=== PATIENT | female | born 1955 | race Caucasian/White ===

== ENCOUNTER 2020-02-15 07:45 | Outpatient (REF) | payer OTHER, SELFPAY ==
--- NOTE | 2020-02-15 07:51 | MM_ITS ---
EXAMINATION: BONE DENSITOMETRY CLINICAL INDICATION: Age-related osteoporosis without current pathological fracture. COMPARISON: Previous BD dated 02/02/2018 and baseline BD dated 02/01/2016. TECHNIQUE: Using a BAUNAT DXA System (software version: 13.1) manufactured by [employer], dual-energy x-ray absorptiometry was performed of the lumbar spine and left hip. The images are of good technical quality. Summary results are attached. FINDINGS: AP SPINE L1-L4: Current: BMD 1.125 g/cm2, Z-score 0.8, T-score -0.5, normal, 8.2% increase from previous, 18.2% increase from baseline (<5% change is not significant). Prior: BMD 1.040 g/cm2. Baseline: BMD 0.952 g/cm2. LEFT FEMUR, NECK: Current: BMD 0.822 g/cm2, Z-score -0.3, T-score -1.6, osteopenia. Prior: BMD 0.733 g/cm2. Baseline: BMD 0.668 g/cm2. LEFT FEMUR, TOTAL: Current: BMD 0.902 g/cm2, Z-score 0.1, T-score -0.8, normal, 5.7% increase from previous, 11.4% increase from baseline (<5% change is not significant). Prior: BMD 0.853 g/cm2. Baseline: BMD 0.810 g/cm2. IDENTIFIED RISK FACTORS: Osteoporosis. Current smoker. Height loss. Parental hip fracture. Secondary osteoporosis (hyperthyroidism). Chronic glucocorticoids. Menopause. HISTORY OF FRACTURE: Elbow, age 23. MEDICATIONS: Prolia. IMPRESSION: 1. DIAGNOSIS: Osteopenia based on the lowest T-score value of -1.6 in the femoral neck applying World Health Organization criteria. 2. 10-YEAR FRACTURE RISK PREDICTION, FRAX: Major osteoporotic fracture (clinical spine, forearm, hip or shoulder) 16.7%. Hip fracture 1.7%. 3. Treatment Recommendations: NOF guidelines recommend consideration for treatment in postmenopausal women and men age 50 and older presenting with the following: -A hip or vertebral (clinical or morphometric) fracture. -T-score less than or equal to -2.5 at the femoral neck or spine after appropriate evaluation to exclude secondary causes. -Low bone mass at the hip or spine and a 10-year fracture probability by FRAX of greater than or equal to 3% for hip fracture or greater than or equal to 20% for major osteoporotic fracture based on the [place] adapted WHO algorithm. 4. Other Recommendations: All treatment decisions require clinical judgment and consideration of individual patient factors, including patient preferences, comorbidities, previous drug use, risk factors not captured in the FRAX model (e.g. frailty, falls, vitamin D deficiency, increased bone turnover, interval significant decline in bone density) and possible under or overestimation of fracture risk by FRAX. Additional medical evaluation for secondary cause of low bone mineral density may be appropriate. FUTURE SCAN RECOMMENDATION: People with diagnosed cases of osteoporosis or at high risk for fracture should have regular bone mineral density tests. For patients eligible for Medicare, routine testing is allowed once every 2 years. The testing frequency can be increased to one year for patients who have rapidly progressing disease, those who are receiving or discontinuing medical therapy to restore bone mass, or have additional risk factors.
== END 2020-02-15 07:46 | disposition home or self-care (01) ==
LOC: HO.MAMMO 07:45
PROVIDERS: PCP Family Medicine; Visit Provider Internal Medicine Endocrinology, Diabetes & Metabolism
DX: Z13.820 Encounter for screening for osteoporosis (principal); E27.49 Other adrenocortical insufficiency; M85.80 Other specified disorders of bone density and structure, unspecified site; F17.200 Nicotine dependence, unspecified, uncomplicated; Z78.0 Asymptomatic menopausal state
CPT/HCPCS: 77080

== ENCOUNTER 2020-04-02 07:49 | Outpatient (REF) | payer OTHER, SELFPAY ==
--- NOTE | 2020-04-02 07:49 | CT_ITS ---
EXAMINATION: CT CHEST SCREENING CLINICAL INFORMATION: Smoker COMPARISON: CT chest 03/28/2019. TECHNIQUE: Multidetector volumetric CT imaging of the chest is performed without contrast using low dose technique. Additional 2D coronal and sagittal reformatted images and axial 3D maximum intensity projection (MIP) images are generated on the CT workstation. This CT examination was performed using dose optimization techniques as appropriate, variously including the following: *Automated exposure control *Adjustment of mA and/or kV according to patient size (this includes techniques or standardized protocols for targeted exams where dose is matched to indication/reason for exam; i.e. extremities or head) *Use of iterative reconstruction technique DLP: 49 mGy-cm FINDINGS: LUNGS: Lungs are well-expanded and clear of acute pneumonic process. There is a 3 mm nodule left upper lobe, axial image 148/6; 2 mm nodule left lower lobe superior segment, axial image 170/6; mild atelectatic changes right middle lobe medially, axial image 27/4. MEDIASTINUM: The thyroid lobes are symmetrical and normal. The central trachea and the bronchi are widely patent. 7 mm shotty precarinal lymph node is seen. Heart size and the great vessels are normal caliber. There is no pericardial effusion. PLEURA: There is no pleural effusion. No pleural mass or thickening. AXILLA: No lymphadenopathy. UPPER ABDOMEN: Visualized liver, spleen, pancreas and bilateral adrenal glands are unremarkable. No lytic or sclerotic process seen. There is mild ventral spondylosis. OSSEOUS STRUCTURES: Stable left upper lobe and left lower lobe nodules. No new nodules seen. Minimal atelectatic changes right middle lobe medially. No acute pulmonary process seen. CT/CT lung screening IMPRESSION: Unremarkable examination. ASSESSMENT: Lung-RADS category 2: Benign RECOMMENDATION: Low dose annual CT screening
== END 2020-04-02 07:50 | disposition home or self-care (01) ==
LOC: HO.CT 07:49
PROVIDERS: Visit Provider Surgery
DX: Z12.2 Encounter for screening for malignant neoplasm of respiratory organs (principal); F17.210 Nicotine dependence, cigarettes, uncomplicated
CPT/HCPCS: 71250

== ENCOUNTER → 2020-06-15 10:45 | Outpatient (BNVA) | payer MEDICARE, SELFPAY | PROVIDERS: Visit Provider Internal Medicine Endocrinology, Diabetes & Metabolism | CPT/HCPCS: Q3014 ==

== ENCOUNTER 2020-07-04 08:52 | Outpatient (REF) | payer MEDICARE, OTHER, SELFPAY ==
[2020-07-04 10:33] LABS: Albumin Level 4.3 g/dL (3.5-5.0); Calcium 8.8 mg/dL (8.4-10.2)
[2020-07-04 11:04] LABS: Free T4 (Free Thyroxine) 1.27 ng/dL (0.71-1.85); Thyroid Stimulating Hormone 1.85 uIU/mL (0.32-4.0); Vitamin D 25-OH Total 18.3 ng/mL (>30)
[2020-07-06 13:07] LABS: Calcium (PTHI) 9.1 mg/dL (8.6-10.4); PTHI 82 pg/mL (14-64)
[2020-07-09 00:46] LABS: VITAMIN D (1,25 OH) D3 59 pg/mL; Vit D (1,25-Dihydroxy) Total 59 pg/mL (18-72); Vitamin D (1,25 OH) D2 <8 pg/mL
[2020-07-10 15:32] LABS: N-Telopeptide 62 (see note); NTXCreaRU 177 mg/dL (20-275)
== END 2020-07-04 08:53 | disposition home or self-care (01) ==
LOC: HO.10HDL 08:52
PROVIDERS: Visit Provider Internal Medicine Endocrinology, Diabetes & Metabolism
DX: M81.0 Age-related osteoporosis without current pathological fracture (principal)
CPT/HCPCS: 36415; 82040; 82306; 82310; 82523; 82652; 83970; 84439; 84443; 96402

== ENCOUNTER 2020-07-17 10:07 | Outpatient (REF) | payer MEDICARE, OTHER, SELFPAY | END 2020-07-17 10:08 | disposition home or self-care (01) | LOC: HO.LAB 10:07 | PROVIDERS: Visit Provider Internal Medicine | DX: Z20.822 Contact with and (suspected) exposure to COVID-19 (principal) | CPT/HCPCS: 36415; C9803; U0003; U0005 ==

== ENCOUNTER 2020-07-17 11:04 | Outpatient (REF) | payer MEDICARE, OTHER, SELFPAY ==
[2020-07-17 13:28] LABS: Albumin Level 4.4 g/dL (3.5-5.0); Calcium 9.1 mg/dL (8.4-10.2)
== END 2020-07-17 11:05 | disposition home or self-care (01) ==
LOC: HO.10HDL 11:04
PROVIDERS: Visit Provider Internal Medicine Endocrinology, Diabetes & Metabolism
DX: M81.0 Age-related osteoporosis without current pathological fracture (principal)
CPT/HCPCS: 36415; 82040; 82310

== ENCOUNTER 2020-08-14 11:03 | Outpatient (REF) | payer MEDICARE, OTHER, SELFPAY | END 2020-08-14 11:04 | disposition home or self-care (01) | LOC: HO.LAB 11:03 | PROVIDERS: Visit Provider Internal Medicine | DX: Z20.822 Contact with and (suspected) exposure to COVID-19 (principal) | CPT/HCPCS: C9803; U0003; U0005 ==

== ENCOUNTER 2020-12-19 13:51 | Outpatient (REF) | payer MEDICARE, OTHER, SELFPAY ==
[2020-12-19 15:27] LABS: Alanine Aminotransferase 16 U/L (0-31); Albumin Level 4.3 g/dL (3.5-5.0); Alkaline Phosphatase 79 U/L (39-117); Anion Gap 13 (12-20); Aspartate Amino Transferase 14 U/L (5-31); Bilirubin Total 0.5 mg/dL (0.0-1.0); Blood Urea Nitrogen 11 mg/dL (9-16); Calcium 9.3 mg/dL (8.4-10.2); Carbon Dioxide 25 mmol/L (22-29); Chloride 106 mmol/L (96-108); Estimated Glomerular Filt Rate > 60; Glucose Random 84 mg/dL (60-115); Potassium 4.4 mmol/L (3.3-5.1); Sodium 140 mmol/L (135-145); Total Protein 6.4 g/dL (6.5-8.0)
[2020-12-19 15:39] LABS: Vitamin D 25-OH Total 44.3 ng/mL (>30)
[2020-12-20 15:46] LABS: Calcium (PTHI) 9.3 mg/dL (8.6-10.4); PTHI 104 pg/mL (14-64)
== END 2020-12-19 13:52 | disposition home or self-care (01) ==
LOC: HO.LAB 13:51
PROVIDERS: PCP Nurse Practitioner Adult Health; Visit Provider Internal Medicine
DX: E55.9 Vitamin D deficiency, unspecified (principal)
CPT/HCPCS: 36415; 80053; 82306; 83970

== ENCOUNTER 2021-01-08 11:36 | Outpatient (REF) | payer MEDICARE, OTHER, SELFPAY | END 2021-01-08 11:37 | disposition home or self-care (01) | LOC: HO.LAB 11:36 | PROVIDERS: PCP Nurse Practitioner Adult Health; Visit Provider Internal Medicine | DX: Z20.822 Contact with and (suspected) exposure to COVID-19 (principal) | CPT/HCPCS: C9803; U0003; U0005 ==

== ENCOUNTER 2021-05-15 07:56 | Outpatient (REF) | payer MEDICARE, OTHER, SELFPAY ==
--- NOTE | ~2021-05-15 | MM_ITS ---
EXAMINATION: MM SCREENING DIGITAL BREAST TOMOSYNTHESIS, BILATERAL CLINICAL INFORMATION: Screening. Asymptomatic. The lifetime risk of breast cancer based on the Tyrer-Cuzick Model is 6%. COMPARISON: Mammography: 05/02/2019, 02/02/2018, 02/01/2016 TECHNIQUE: Digital breast tomosynthesis is performed in both the craniocaudal and mediolateral oblique views along with computer-aided detection (CAD). Synthesized 2D images are generated from the tomosynthesis. FINDINGS: There are scattered areas of fibroglandular density (ACR BI-RADS breast composition Category b). There are no significant masses, abnormal calcifications, or other abnormalities. Parenchymal pattern is similar to prior exams. No developing density. No significant changes. MM/MM tomosynthesis screening BI IMPRESSION: No mammographic evidence of malignancy. ASSESSMENT: BI-RADS 1: Negative RECOMMENDATION: Routine annual mammography screening. This patient's information was entered into a reminder system with a target due date for their next mammogram.
== END 2021-05-15 07:57 | disposition home or self-care (01) ==
LOC: HO.MAMMO 07:56
PROVIDERS: PCP Nurse Practitioner Adult Health; Visit Provider Nurse Practitioner Adult Health
DX: Z12.31 Encounter for screening mammogram for malignant neoplasm of breast (principal)
CPT/HCPCS: 77063; 77067

== ENCOUNTER 2021-08-22 13:50 | Outpatient (REF) | payer MEDICARE, OTHER, SELFPAY ==
[2021-08-22 15:45] LABS: Albumin Level 4.6 g/dL (3.5-5.0); Blood Urea Nitrogen 15 mg/dL (9-16); Calcium 10.4 mg/dL (8.4-10.2); Estimated Glomerular Filt Rate > 60; Phosphorus 3.8 mg/dL (2.7-4.5)
[2021-08-22 16:07] LABS: Free T4 (Free Thyroxine) 1.31 ng/dL (0.71-1.85); Thyroid Stimulating Hormone 1.13 uIU/mL (0.32-4.0); Vitamin D 25-OH Total 50.9 ng/mL (>30)
[2021-08-23 12:26] LABS: Calcium (PTHI) 9.9 mg/dL (8.6-10.4); PTHI 51 pg/mL (16-77)
== END 2021-08-22 13:51 | disposition home or self-care (01) ==
LOC: HO.LAB 13:50
PROVIDERS: PCP Nurse Practitioner Adult Health; Visit Provider Internal Medicine Endocrinology, Diabetes & Metabolism
DX: M81.0 Age-related osteoporosis without current pathological fracture (principal); E03.9 Hypothyroidism, unspecified; E05.00 Thyrotoxicosis with diffuse goiter without thyrotoxic crisis or storm
CPT/HCPCS: 36415; 82040; 82306; 82310; 82565; 83970; 84100; 84439; 84443; 84520; 99212

== ENCOUNTER 2021-08-24 13:52 | Outpatient (REF) | payer MEDICARE, OTHER, SELFPAY ==
[2021-08-24 14:35] LABS: Creatinine, mg/dL 53.25
[2021-08-24 15:51] LABS: Total Volume 24 Hour Urine 1800 mL
[2021-08-27 23:02] LABS: Calcium, 24 Hr Urine 248 mg/24 h; Calcium/Creatinine Ratio 246 mg/g creat (30-275); Creatinine 24Hr Urine 0.99 g/24 h (0.50-2.15)
== END 2021-08-24 13:53 | disposition home or self-care (01) ==
LOC: HO.LNP 13:52
PROVIDERS: Visit Provider Internal Medicine Endocrinology, Diabetes & Metabolism
DX: M81.0 Age-related osteoporosis without current pathological fracture (principal)
CPT/HCPCS: 82340; 82570

== ENCOUNTER 2021-10-02 10:54 | Outpatient (REF) | payer MEDICARE, OTHER, SELFPAY ==
[2021-10-02 11:51] LABS: Blood Urea Nitrogen 13 mg/dL (9-16); Estimated Glomerular Filt Rate > 60
== END 2021-10-02 10:55 | disposition home or self-care (01) ==
LOC: HO.MDS 10:54
PROVIDERS: Visit Provider Internal Medicine Endocrinology, Diabetes & Metabolism
DX: M81.0 Age-related osteoporosis without current pathological fracture (principal); E03.9 Hypothyroidism, unspecified; E55.9 Vitamin D deficiency, unspecified
CPT/HCPCS: 36415; 82565; 84520; 96365; J3489

== ENCOUNTER → 2021-11-28 13:50 | Outpatient (BNVA) | payer MEDICARE, OTHER, SELFPAY | PROVIDERS: PCP Nurse Practitioner Adult Health; Visit Provider Internal Medicine Endocrinology, Diabetes & Metabolism | DX: M81.0 Age-related osteoporosis without current pathological fracture (principal); E89.0 Postprocedural hypothyroidism; E05.00 Thyrotoxicosis with diffuse goiter without thyrotoxic crisis or storm | CPT/HCPCS: 99212 ==

== ENCOUNTER → 2022-02-17 10:01 | Outpatient (RCR) | payer OTHER, SELFPAY ==
[2020-03-13 06:29] LABS: COVID-19 Test Negative (Negative)
[2020-03-21 08:13] LABS: COVID-19 Test Negative (Negative)
[2020-03-28 07:59] LABS: COVID-19 Test Negative (Negative)
[2020-04-02 08:43] LABS: IDNOW Serial# 55D5AD1C
[2020-04-02 08:44] LABS: COVID-19 Test Negative (Negative)
[2020-04-19 09:57] LABS: SARS-COV-2 PCR UMBRL Not Detected
[2020-04-21 13:59] LABS: SARS-COV-2 PCR UMBRL NOT DETECTED
[2020-04-30 09:47] LABS: SARS-COV-2 PCR UMBRL Not Detected
[2020-05-03 10:22] LABS: SARS-COV-2 PCR UMBRL Not Detected
[2020-05-10 09:25] LABS: SARS-COV-2 PCR UMBRL Not Detected
[2020-05-18 15:29] LABS: SARS-COV-2 PCR UMBRL NEGATIVE
== END | disposition home or self-care (01) ==
LOC: HO.EMPCOV 03-13 06:08
PROVIDERS: Visit Provider Internal Medicine
DX: Z20.828 Contact with and (suspected) exposure to other viral communicable diseases (principal)
CPT/HCPCS: 36415; 87635; C9803; U0003

== ENCOUNTER → 2022-02-20 13:09 | Outpatient (RCR) | payer OTHER, SELFPAY ==
[2020-04-07 08:34] LABS: COVID-19 Test Negative (Negative)
== END | disposition home or self-care (01) ==
LOC: HO.EMPCOV 04-07 08:00
PROVIDERS: Visit Provider Internal Medicine
DX: Z20.828 Contact with and (suspected) exposure to other viral communicable diseases (principal)
CPT/HCPCS: 87635; C9803

== ENCOUNTER 2022-05-20 10:18 | Outpatient (REF) | payer MEDICARE, OTHER, SELFPAY ==
--- NOTE | ~2022-05-20 | MM_ITS ---
EXAMINATION: MM SCREENING DIGITAL BREAST TOMOSYNTHESIS, BILATERAL CLINICAL INFORMATION: Screening. Asymptomatic. The lifetime risk of breast cancer based on the Tyrer-Cuzick Model is 6%. COMPARISON: Mammography: 05/15/2021, 05/02/2019, 02/02/2018 TECHNIQUE: Digital breast tomosynthesis is performed in both the craniocaudal and mediolateral oblique views along with computer-aided detection (CAD). Synthesized 2D images are generated from the tomosynthesis. FINDINGS: There are scattered areas of fibroglandular density (ACR BI-RADS breast composition Category b). There are no significant masses, abnormal calcifications, or other abnormalities. Parenchymal pattern is similar to prior exams. Incidental intramammary node again seen mid upper outer left breast. There is a cardiac loop recorder overlying the posterior medial left breast. MM/MM tomosynthesis screening BI IMPRESSION: No mammographic evidence of malignancy. ASSESSMENT: BI-RADS 2: Benign RECOMMENDATION: Routine annual mammography screening. This patient's information was entered into a reminder system with a target due date for their next mammogram.
[2022-05-26 11:48] LABS: N-Telopeptide 24 (see note); NTXCreaRU 34 mg/dL (20-275)
== END 2022-05-20 10:19 | disposition home or self-care (01) ==
LOC: HO.MAMMO 10:18
PROVIDERS: Internal Medicine Endocrinology, Diabetes & Metabolism; Visit Provider Nurse Practitioner Adult Health
DX: Z12.31 Encounter for screening mammogram for malignant neoplasm of breast (principal); M81.0 Age-related osteoporosis without current pathological fracture
CPT/HCPCS: 77063; 77067; 82523

== ENCOUNTER → 2022-07-08 11:42 | Outpatient (BNVA) | payer MEDICARE, OTHER, SELFPAY | PROVIDERS: PCP Nurse Practitioner Adult Health; Visit Provider Internal Medicine Endocrinology, Diabetes & Metabolism | DX: M81.0 Age-related osteoporosis without current pathological fracture (principal); E89.0 Postprocedural hypothyroidism; E05.00 Thyrotoxicosis with diffuse goiter without thyrotoxic crisis or storm | CPT/HCPCS: 99212 ==

== ENCOUNTER 2022-07-14 10:49 | Outpatient (REF) | payer MEDICARE, OTHER, SELFPAY ==
--- NOTE | ~2022-07-14 | MM_ITS ---
EXAMINATION: BONE DENSITOMETRY CLINICAL INDICATION: Osteoporosis. COMPARISON: Previous BD dated 02/15/2020 and baseline BD dated 02/01/2016. TECHNIQUE: Using a [employer] DXA System (software version: 13.1) manufactured by [employer], dual-energy x-ray absorptiometry was performed of the lumbar spine and left hip. The images are of good technical quality. Summary results are attached. FINDINGS: AP SPINE L1-L4: Current: BMD 0.979 g/cm2, Z-score -0.5, T-score -1.7, osteopenia, 13.0% decrease from previous, 2.8% increase from baseline (<5% change is not significant). Prior: BMD 1.125 g/cm2. Baseline: BMD 0.952 g/cm2. LEFT FEMUR, NECK: Current: BMD 0.824 g/cm2, Z-score -0.2, T-score -1.5, osteopenia. Prior: BMD 0.822 g/cm2. Baseline: BMD 0.668 g/cm2. LEFT FEMUR, TOTAL: Current: BMD 0.900 g/cm2, Z-score 0.2, T-score -0.9, normal, 0.2% decrease from previous, 11.1% increase from baseline (<5% change is not significant). Prior: BMD 0.902 g/cm2. Baseline: BMD 0.810 g/cm2. IDENTIFIED RISK FACTORS: Menopause, height loss, family history (parent hip fracture), secondary osteoporosis, tobacco use (current smoker), osteoporosis. HISTORY OF FRACTURE: None listed. MEDICATIONS: Vitamin D, bisphosphonate. MM/XR DEXA axial skeleton IMPRESSION: 1. DIAGNOSIS: Osteopenia based on the lowest T-score value of -1.7 in the lumbar spine applying World Health Organization criteria. 2. 10-YEAR FRACTURE RISK PREDICTION, FRAX: Not performed in this patient on estrogen or bone building treatments. 3. Treatment Recommendations: NOF guidelines recommend consideration for treatment in postmenopausal women and men age 50 and older presenting with the following: -A hip or vertebral (clinical or morphometric) fracture. -T-score less than or equal to -2.5 at the femoral neck or spine after appropriate evaluation to exclude secondary causes. -Low bone mass at the hip or spine and a 10-year fracture probability by FRAX of greater than or equal to 3% for hip fracture or greater than or equal to 20% for major osteoporotic fracture based on the [place] adapted WHO algorithm. 4. Other Recommendations: All treatment decisions require clinical judgment and consideration of individual patient factors, including patient preferences, comorbidities, previous drug use, risk factors not captured in the FRAX model (e.g. frailty, falls, vitamin D deficiency, increased bone turnover, interval significant decline in bone density) and possible under or overestimation of fracture risk by FRAX. Additional medical evaluation for secondary cause of low bone mineral density may be appropriate. FUTURE SCAN RECOMMENDATION: People with diagnosed cases of osteoporosis or at high risk for fracture should have regular bone mineral density tests. For patients eligible for Medicare, routine testing is allowed once every 2 years. The testing frequency can be increased to one year for patients who have rapidly progressing disease, those who are receiving or discontinuing medical therapy to restore bone mass, or have additional risk factors.
== END 2022-07-14 10:50 | disposition home or self-care (01) ==
LOC: HO.MAMMO 10:49
PROVIDERS: PCP Nurse Practitioner Adult Health; Visit Provider Internal Medicine Endocrinology, Diabetes & Metabolism
DX: M81.0 Age-related osteoporosis without current pathological fracture (principal)
CPT/HCPCS: 77080

== ENCOUNTER 2022-08-20 09:45 | Outpatient (REF) | payer MEDICARE, OTHER, SELFPAY ==
[2022-08-20 11:20] LABS: Free T4 (Free Thyroxine) 1.01 ng/dL (0.71-1.85); Thyroid Stimulating Hormone 2.39 uIU/mL (0.32-4.0)
== END 2022-08-20 09:46 | disposition home or self-care (01) ==
LOC: HO.LAB 09:45
PROVIDERS: PCP Nurse Practitioner Adult Health; Visit Provider Internal Medicine Endocrinology, Diabetes & Metabolism
DX: E05.00 Thyrotoxicosis with diffuse goiter without thyrotoxic crisis or storm (principal); E89.0 Postprocedural hypothyroidism
CPT/HCPCS: 36415; 84439; 84443

== ENCOUNTER 2023-05-12 12:39 | Outpatient (REF) | payer MEDICARE, OTHER, SELFPAY ==
[2023-05-12 14:52] LABS: Free T4 (Free Thyroxine) 1.21 ng/dL (0.71-1.85); Thyroid Stimulating Hormone 0.98 uIU/mL (0.32-4.0)
== END 2023-05-12 12:40 | disposition home or self-care (01) ==
LOC: HO.LAB 12:39
PROVIDERS: PCP Nurse Practitioner Adult Health; Visit Provider Internal Medicine Endocrinology, Diabetes & Metabolism
DX: E89.0 Postprocedural hypothyroidism (principal)
CPT/HCPCS: 36415; 84439; 84443

== ENCOUNTER 2023-05-26 10:52 | Outpatient (REF) | payer MEDICARE, OTHER, SELFPAY ==
--- NOTE | ~2023-05-26 | MM_ITS ---
EXAMINATION: MM SCREENING DIGITAL BREAST TOMOSYNTHESIS, BILATERAL CLINICAL INFORMATION: Screening. Asymptomatic. COMPARISON: Mammography: This study is compared with prior exams dating back to 2018. TECHNIQUE: Digital breast tomosynthesis is performed in both the craniocaudal and mediolateral oblique views along with computer-aided detection (CAD). Synthesized 2D images are generated from the tomosynthesis. FINDINGS: There are scattered areas of fibroglandular density (ACR BI-RADS breast composition Category b). There are no significant masses, abnormal calcifications, or other abnormalities. There is a cardiac loop recorder the medial aspect of the left breast. MM/MM tomosynthesis screening BI IMPRESSION: No mammographic evidence of malignancy. ASSESSMENT: BI-RADS BI-RADS 1 - Negative RECOMMENDATION: Routine annual mammography screening. 1 year F/U This examination should not preclude the clinical evaluation of a suspicious palpable abnormality. This patient's information was entered into a reminder system with a target due date for their next mammogram.
== END 2023-05-26 10:53 | disposition home or self-care (01) ==
LOC: HO.MAMMO 10:52
PROVIDERS: PCP Nurse Practitioner Adult Health; Visit Provider Nurse Practitioner Adult Health
DX: Z12.31 Encounter for screening mammogram for malignant neoplasm of breast (principal)
CPT/HCPCS: 77063; 77067

== ENCOUNTER → 2023-05-26 11:00 | Outpatient (BNV) | payer MEDICARE, OTHER, SELFPAY | PROVIDERS: PCP Nurse Practitioner Adult Health; Visit Provider Radiology Diagnostic Radiology | DX: Z12.31 Encounter for screening mammogram for malignant neoplasm of breast (principal) | CPT/HCPCS: 77063; 77067 ==

== ENCOUNTER 2023-06-16 15:20 | Outpatient (AMB) | payer MEDICARE, OTHER, SELFPAY ==
[2023-06-16 15:24] VITALS: BP 142/66; PULSE 80; BMI 32.2
--- NOTE | 2023-06-16 15:24 | A.OFFVIS_ITS ---
Intake Vital Signs 06/16/23 15:24 Height 5 ft 4.96 in Weight 193 lb 9.054 oz BMI 32.2 BP 142/66 H Blood Pressure Location Lt brachial Position Sitting Pulse 80 Pulse Source Pulse Oximeter Intake Visit Reasons: Osteoporosis-confirmed Intake Note: Patient presents today for Osteoporosis follow up visit. 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 Accompanied by: Self / Same As Patient Allergies bupropion [From ZYBAN] Allergy (Unknown, Verified 06/16/23 15:29) RASH nafcillin [NAFCILLIN] Allergy (Unknown, Verified 06/16/23 15:29) RASH Penicillins [PENICILLINS] Allergy (Unknown, Verified 06/16/23 15:29) RASH Sulfa (Sulfonamide Antibiotics) Allergy (Unknown, Verified 06/16/23 15:29) Unknown sulfamethoxazole [From BACTRIM] Allergy (Unknown, Verified 06/16/23 15:29) REDNESS, COLD EXTREMITIES trimethoprim [From BACTRIM] Allergy (Unknown, Verified 06/16/23 15:29) REDNESS, COLD EXTREMITIES ceftriaxone Adverse Reaction (Severe, Verified 06/16/23 15:29) Rash mannitol [From Reclast] Adverse Reaction (Unknown, Verified 06/16/23 15:29) Joint Pain water for injection,sterile [From Reclast] Adverse Reaction (Unknown, Verified 06/16/23 15:29) Joint Pain zoledronic acid [From Reclast] Adverse Reaction (Unknown, Verified 06/16/23 15:29) Joint Pain Zyban Allergy (Unknown, Uncoded 06/16/23 15:29) Unknown HPI HPI Comments History of Present Illness Details 68 yo female today for fup visit, for osteoporosis and hypothyroidism She is feeling well. She informs me she had eyelid surgery on 03/16/2019. She will finish Forteo 07/15/18. She had her 1st dose of Prolia on 2018. Her last dose was 1 yr ago She is on Forteo since beginning of july 2016, she is complaining of insomnia wich is improved with Melatonin. She has PMH of Graves' disease status post radioactive iodine ablation and Graves orbitopathy, post ablative hypothyroidism. She is currently on Levoxyl 150 mcg daily just increased by PCP . She has a good method of administration and she is 100% adherent. Denies prior fractures, + GERD, Her mother and grand mother has history of osteoporosis, denies nephrolithiasis, no steroids used, she is smoker, denies anti seizures medications, no Chronic PPI, no SSRI. She negative History of head or neck irradiation. Bisphosphonates use: did not tolerate oral bisphosphonates. Vitamin D: 2000 IU Herbal medications. none. She is still smokes. 02/15/2020 AP SPINE L1-L4: Current: BMD 1.125 g/cm2, Z-score 0.8, T-score -0.5, normal, 8.2% increase from previous, 18.2% increase from baseline (<5% change is not significant). Prior: BMD 1.040 g/cm2. Baseline: BMD 0.952 g/cm2. LEFT FEMUR, NECK: Current: BMD 0.822 g/cm2, Z-score -0.3, T-score -1.6, osteopenia. Prior: BMD 0.733 g/cm2. Baseline: BMD 0.668 g/cm2. LEFT FEMUR, TOTAL: Current: BMD 0.902 g/cm2, Z-score 0.1, T-score -0.8, normal, 5.7% increase from previous, 11.4% increase from baseline (<5% change is not significant). Prior: BMD 0.853 g/cm2. Baseline: BMD 0.810 g/cm2. Transitioned to Reclast had reaction and ended up in ER Laboratory Tests 11/23/19 01/20/20 01/20/20 08:20 10:00 10:40 Hgb 13.3 Hct 40.9 Sodium 141 Potassium 4.6 Creatinine 0.84 Est GFR (Non-Af Am er) > 60 Fasting Glucose 85 Calcium AST 14 ALT 15 Alkaline Phosphata se 74 Albumin 4.5 N-Telopeptide X-li nked 25 25-OH Vitamin D To humberto 26.3 Free T4 1.35 TSH 3rd Generation 2.13 PTH Intact 01/20/20 10:40 Hgb Hct Sodium Potassium Creatinine Est GFR (Non-Af Am er) Fasting Glucose Calcium 9.0 AST ALT Alkaline Phosphata se Albumin N-Telopeptide X-li nked 25-OH Vitamin D To humberto Free T4 TSH 3rd Generation PTH Intact [address] King who does not want to give Tepezza . Currently on calcium and vitamin-D. No fracture since last visit [facility] Medical History (Updated 08/22/21 @ 14:55 by David Servin MD) Vitamin D deficiency Overweight (BMI 25.0-29.9) Graves' orbitopathy Hypothyroidism Osteoporosis Surgical History Hx of hernia repair History of colonoscopy Hx of cholecystectomy Hx of eye surgery Family History Mother No problems noted. Father No problems noted. Social History Alcohol intake: current Alcohol intake frequency: holidays/special occasions only Patient Tobacco Use Status: Current everyday Tobacco user Cigarette Packs Per Day: 0.5 Physical Exam Vital Signs: Last Vital Signs Pulse 80 06/16/23 15:24 BP 142/66 H 06/16/23 15:24 BMI result Body Mass Index 32.2 Assessment & Plan Assessment & Plan (1) Osteoporosis: Code(s): M81.0 - Age-related osteoporosis without current pathological fracture Qualifiers: Osteoporosis type: age-related Presence of current pathological fracture: without current pathological fracture Qualified Code(s): M81.0 - Age- related osteoporosis without current pathological fracture Plan: This is a 68-year-old white female with history of osteoporosis initially treated with Forteo and then transitioned to Prolia. Recent bone density showed low bone mass. There is no history of fracture. There is a history of persistently elevated PTH levels. Last PTH was normal. She transitioned to Reclast in 10/2021 and received 1 dose. Urine NTX suppressed. DEXA last year showed stability of bone density The plan is to continue to observe off pharmacologic therapy. Primary care provider can repeat DEXA bone density next year and if patient progresses back to osteoporosis can refer back to endocrinology (2) Hypothyroidism: Code(s): E03.9 - Hypothyroidism, unspecified Qualifiers: Hypothyroidism type: postablative Qualified Code(s): E89.0 - Postprocedural hypothyroidism Plan: Appears clinically and biochemically euthyroid on 175 mcg Levoxyl Plan is to continue the current therapy. At this point, patient returned to the care of her primary care provider and returned back to endocrinology as needed (3) Graves' orbitopathy: Comment: I scheduled a follow-up appointment with Dr. King to asess the CLAU Code(s): E05.00 - Thyrotoxicosis with diffuse goiter without thyrotoxic crisis or storm Plan: She has significant CLAU. Follow up with Dr. 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
== END 2023-06-16 15:46 | disposition home or self-care (01) ==
PROVIDERS: PCP Nurse Practitioner Adult Health; Visit Provider Internal Medicine Endocrinology, Diabetes & Metabolism
DX: M81.0 Age-related osteoporosis without current pathological fracture (principal); E89.0 Postprocedural hypothyroidism; E05.00 Thyrotoxicosis with diffuse goiter without thyrotoxic crisis or storm
CPT/HCPCS: 99213

== ENCOUNTER → 2023-06-16 15:20 | Outpatient (BNVA) | payer MEDICARE, OTHER, SELFPAY | PROVIDERS: PCP Nurse Practitioner Adult Health; Visit Provider Internal Medicine Endocrinology, Diabetes & Metabolism | DX: M81.0 Age-related osteoporosis without current pathological fracture (principal); E89.0 Postprocedural hypothyroidism; E05.00 Thyrotoxicosis with diffuse goiter without thyrotoxic crisis or storm | CPT/HCPCS: 99212 ==

== ENCOUNTER 2023-09-03 10:15 | Outpatient (REF) | payer MEDICARE, OTHER, SELFPAY ==
--- NOTE | ~2023-09-03 | XR_ITS ---
EXAMINATION: XR HIP, LEFT CLINICAL INFORMATION: Left hip pain COMPARISON: Left hip x-ray of 07/29/2016 TECHNIQUE: Frontal and frog lateral views of the left hip. FINDINGS: There are moderate to advanced degenerative changes of the left hip, superolateral joint space narrowing, subchondral sclerosis and probable subchondral cyst formation as well as prominent osteophyte formation. The osteoarthritic changes have progressed since 07/29/2016. No fracture or bone lesion is detected. XR/XR hip LT min 2V IMPRESSION: Moderate to advanced osteoarthrosis of the left hip, progressed since 07/29/2016.
== END 2023-09-03 10:16 | disposition home or self-care (01) ==
LOC: HO.XRAY 10:15
PROVIDERS: PCP Nurse Practitioner Adult Health; Visit Provider Nurse Practitioner Adult Health
DX: R10.32 Left lower quadrant pain (principal)
CPT/HCPCS: 73502

== ENCOUNTER 2023-12-28 12:51 | Outpatient (AMB) | payer MEDICARE, OTHER, SELFPAY ==
--- NOTE | 2023-12-28 13:03 | A.OFFVIS_ITS ---
Vital Signs 12/28/23 13:05 Height 5 ft 4.96 in Weight 184 lb 1.376 oz BMI 30.7 BP 130/6 L Blood Pressure Location Rt brachial Position Sitting Pulse 69 Pulse Source Pulse Oximeter Intake Visit Reasons: hypothyroidism/CONFIRMED Intake Note: New patient present today for Hypothyroidism office visit. Patient reports she is also taking Magnesium. Group Segment Consultant Required: No Accompanied by: Self / Same As Patient Allergies bupropion [From ZYBAN] Allergy (Unknown, Verified 12/28/23 13:05) RASH nafcillin [NAFCILLIN] Allergy (Unknown, Verified 12/28/23 13:05) RASH Penicillins [PENICILLINS] Allergy (Unknown, Verified 12/28/23 13:05) RASH Sulfa (Sulfonamide Antibiotics) Allergy (Unknown, Verified 12/28/23 13:05) Unknown sulfamethoxazole [From BACTRIM] Allergy (Unknown, Verified 12/28/23 13:05) REDNESS, COLD EXTREMITIES trimethoprim [From BACTRIM] Allergy (Unknown, Verified 12/28/23 13:05) REDNESS, COLD EXTREMITIES ceftriaxone Adverse Reaction (Severe, Verified 12/28/23 13:05) Rash mannitol [From Reclast] Adverse Reaction (Unknown, Verified 12/28/23 13:05) Joint Pain water for injection,sterile [From Reclast] Adverse Reaction (Unknown, Verified 12/28/23 13:05) Joint Pain zoledronic acid [From Reclast] Adverse Reaction (Unknown, Verified 12/28/23 13:05) Joint Pain Zyban Allergy (Unknown, Uncoded 12/28/23 13:05) Unknown Medication List - Last Reconciled 12/28/23 by Windy Dumont MD albuterol sulfate 90 mcg/actuation inhalation aspirin 81 mg PO DAILY atorvastatin 80 mg PO DAILY bupropion HCl XL 150 mg PO QAM cholecalciferol (vitamin D3) 50 mcg PO DAILY 30 days fluticasone propionate 50 mcg/actuation sprays intranasal xisphztgtaq-iuwgsugry-werwimpu 100-62.5-25 mcg (Trelegy Ellipta) 1 inh inhalation DAILY levothyroxine 175 mcg PO DAILY schisandra mg PO umeclidinium-vilanterol 62.5-25 mcg/actuation (Anoro Ellipta) 1 inh inhalation DAILY HPI Comments Details: 68 yo female today for fup visit, for osteoporosis and hypothyroidism She was previously seeing Dr. Servin and last visit was in June 2023.. Osteoporosis Treatment history: 07/2016 to July 2018: Forteo 12/2018-06/2018: Prolia 4 doses Subsequently there was a gap in care 10/2021 Reclast administered Per the chart patient did not tolerate oral bisphosphonates well in the past? Fracture history: left elbow 30 years ago at least, nothing else Denies prior fractures, + GERD, Her mother and grand mother has history of osteoporosis, denies nephrolithiasis, no steroids used, she is still smoking, denies anti seizures medications, no Chronic PPI, no SSRI. Vitamin-D: 2000 units daily Calcium: no supplements, milk 1 glass a day, cheese occasionally, no yogurt Exercise: not really Dental issues:no issues, up to date with cleaning For smoking has tried buprion and chantix, didnt work, still smoking 10-20 cigarettes per day Last bone density scan done in July 2022 shows T-score of -1.7 at the lumbar spine consistent with osteopenia with decrease of 13% at the spine since 2019, T-score of-1.5 at the femoral neck and-0.9 at the total femur, also consistent with osteopenia with not much significant change to noted by decrease of 0.7% si nce 2019. Postablative hypothyroidism Graves orbitopathy She has PMH of Graves' disease status post radioactive iodine ablation 1994 and Graves orbitopathy, post ablative hypothyroidism. She is currently on Synthroid 175 mcg daily.. Taking it since last Mar 2023, when her TSH was elevated at 8. Was on 150 mcg before that for sometime. She has a good method of administration and she is 100% adherent. December 09 PCP TSH 0.56, free t4 2.0 November 08 TSH TSH 0.83, free t3 3.1 , free t4 two 1.5 Has been off it a week and a half becuase she ran out and PCP office didnt refill and want us to manage her thyroid per patient Says she has been gradually putting on weight since last year, gained 30 lbs over the last year and then recently lost about 8 lbs On off constipation and diarrhea. No heat or cold intolreance. No tremors. No palpitations. Has graves orbitopathy ,sees Dr. King says he advised against Tepezza due to longstanding disease and was told to go to [place] to [facility]. she doesnt want to go to [place]. Complaining of persistent dry eyes, worsening blurry vision. Laboratory Tests 11/23/19 01/20/20 01/20/20 08:20 10:00 10:40 Hgb 13.3 Hct 40.9 Sodium 141 Potassium 4.6 Creatinine 0.84 Est GFR (Non-Af Amer) > 60 Fasting Glucose 85 Calcium AST 14 ALT 15 Alkaline Phosphatase 74 Albumin 4.5 N-Telopeptide X-linked 25 25-OH Vitamin D Total 26.3 Free T4 1.35 TSH 3rd Generation 2.13 PTH Intact 01/20/20 10:40 Hgb Hct Sodium Potassium Creatinine Est GFR (Non-Af Amer) Fasting Glucose Calcium 9.0 AST ALT Alkaline Phosphatase Albumin N-Telopeptide X-linked 25-OH Vitamin D Total Free T4 TSH 3rd Generation PTH Intact [address] King who does not want to give Tepezza per patient . Currently on calcium and vitamin-D. No fracture since last visit Review of systems Constitutional: no fevers, chills or weight loss HEENT: no changes in vision Cardiac: No chest pain, discomfort or palpitations. Pulmonary: No SOB GI:has chronic GI issues : no burning micturition, dysuria or increase in urinary frequency Neurologic: No dizziness, no weakness in extremities MSK: no back pain or joint stiffness Physical exam General: sitting comfortably in bed in no acute distress HEENT: normocephalic/atraumatic, , exophthalmos noted, has lid lag Neck: supple, symmetrical, no thyromegaly , no dorsocervical or supraclavicular fat pads Cardiac: normal heart sounds Pulm: normal breath sounds B/L, no added breath sounds Abd: not distended, no tenderness Extremities: no edema, no signs of myxedema Neuro: AAO x3, Speech: normal, no facial droop, moving all 4 extremities Skin: no rash [facility] Medical History (Updated 08/22/21 @ 14:55 by David Servin MD) Vitamin D deficiency Overweight (BMI 25.0-29.9) Graves' orbitopathy Hypothyroidism Osteoporosis Surgical History Hx of hernia repair History of colonoscopy Hx of cholecystectomy Hx of eye surgery Family History Mother No problems noted. Father No problems noted. Social History Alcohol intake: current Alcohol intake frequency: holidays/special occasions only Patient Tobacco Use Status: Current everyday Tobacco user Cigarette Packs Per Day: 0.5 Results Reviewed Results Reviewed: Laboratory Tests 06/30/18 11/18/18 06/11/19 08:20 Unknown 07:45 Creatinine Estimated GFR Calcium Albumin N-Telopeptide X-linked 43 70 22 25-OH Vitamin D Total 1,25 Dihydroxy Vit D 1,25 Dihydroxy Vit D2 1,25 Dihydroxy Vit D3 TSH Free T4 PTH Intact Calcium (PTH Intact) Ur Creatinine 24 Hour Ur Calcium 24 Hr Calcium/Creat 24 Hr 01/20/20 01/20/20 07/04/20 10:00 10:40 08:40 Creatinine Estimated GFR Calcium 8.8 Albumin N-Telopeptide X-linked 25 25-OH Vitamin D Total 26.3 18.3 1,25 Dihydroxy Vit D 59 1,25 Dihydroxy Vit D2 <8 1,25 Dihydroxy Vit D3 59 TSH Free T4 PTH Intact Calcium (PTH Intact) Ur Creatinine 24 Hour Ur Calcium 24 Hr Calcium/Creat 24 Hr 07/04/20 07/17/20 12/19/20 09:10 11:17 14:03 Creatinine Estimated GFR Calcium 9.1 9.3 Albumin 4.4 4.3 N-Telopeptide X-linked 62 25-OH Vitamin D Total 44.3 1,25 Dihydroxy Vit D 1,25 Dihydroxy Vit D2 1,25 Dihydroxy Vit D3 TSH Free T4 PTH Intact 104 H Calcium (PTH Intact) 9.3 Ur Creatinine 24 Hour Ur Calcium 24 Hr Calcium/Creat 24 Hr 08/22/21 08/24/21 10/02/21 15:11 09:30 11:27 Creatinine 0.81 Estimated GFR > 60 Calcium 10.4 H D Albumin 4.6 N-Telopeptide X-linked 25-OH Vitamin D Total 50.9 1,25 Dihydroxy Vit D 1,25 Dihydroxy Vit D2 1,25 Dihydroxy Vit D3 TSH Free T4 PTH Intact 51 Calcium (PTH Intact) 9.9 Ur Creatinine 24 Hour 1.0 Ur Calcium 24 Hr 248 Calcium/Creat 24 Hr 246 05/20/22 08/20/22 05/12/23 11:14 10:07 13:18 Creatinine Estimated GFR Calcium Albumin N-Telopeptide X-linked 24 25-OH Vitamin D Total 1,25 Dihydroxy Vit D 1,25 Dihydroxy Vit D2 1,25 Dihydroxy Vit D3 TSH 2.39 0.98 Free T4 1.01 1.21 PTH Intact Calcium (PTH Intact) Ur Creatinine 24 Hour Ur Calcium 24 Hr Calcium/Creat 24 Hr DEXA 07/24 BONE DENSITOMETRY CLINICAL INDICATION: Osteoporosis. COMPARISON: Previous BD dated 02/15/2020 and baseline BD dated 02/01/2016. TECHNIQUE: Using a Nexus Dx DXA System (software version: 13.1) manufactured by [employer], dual-energy x-ray absorptiometry was performed of the lumbar spine and left hip. The images are of good technical quality. Summary results are attached. FINDINGS: AP SPINE L1-L4: Current: BMD 0.979 g/cm2, Z-score -0.5, T-score -1.7, osteopenia, 13.0% decrease from previous, 2.8% increase from baseline (<5% change is not significant). Prior: BMD 1.125 g/cm2. Baseline: BMD 0.952 g/cm2. LEFT FEMUR, NECK: Current: BMD 0.824 g/cm2, Z-score -0.2, T-score -1.5, osteopenia. Prior: BMD 0.822 g/cm2. Baseline: BMD 0.668 g/cm2. LEFT FEMUR, TOTAL: Current: BMD 0.900 g/cm2, Z-score 0.2, T-score -0.9, normal, 0.2% decrease from previous, 11.1% increase from baseline (<5% change is not significant). Prior: BMD 0.902 g/cm2. Baseline: BMD 0.810 g/cm2. IDENTIFIED RISK FACTORS: Menopause, height loss, family history (parent hip fracture), secondary osteoporosis, tobacco use (current smoker), osteoporosis. HISTORY OF FRACTURE: None listed. MEDICATIONS: Vitamin D, bisphosphonate. MM/XR DEXA axial skeleton IMPRESSION: 1. DIAGNOSIS: Osteopenia based on the lowest T-score value of -1.7 in the lumbar spine applying World Health Organization criteria. 2. 10-YEAR FRACTURE RISK PREDICTION, FRAX: Not performed in this patient on estrogen or bone building treatments. 3. Treatment Recommendations: NOF guidelines recommend consideration for treatment in postmenopausal women and men age 50 and older presenting with the following: -A hip or vertebral (clinical or morphometric) fracture. -T-score less than or equal to -2.5 at the femoral neck or spine after appropriate evaluation to exclude secondary causes. -Low bone mass at the hip or spine and a 10-year fracture probability by FRAX of greater than or equal to 3% for hip fracture or greater than or equal to 20% for major osteoporotic fracture based on the [place] adapted WHO algorithm. 4. Other Recommendations: All treatment decisions require clinical judgment and consideration of individual patient factors, including patient preferences, comorbidities, previous drug use, risk factors not captured in the FRAX model (e.g. frailty, falls, vitamin D deficiency, increased bone turnover, interval significant decline in bone density) and possible under or overestimation of fracture risk by FRAX. Additional medical evaluation for secondary cause of low bone mineral density may be appropriate. FUTURE SCAN RECOMMENDATION: People with diagnosed cases of osteoporosis or at high risk for fracture should have regular bone mineral density tests. For patients eligible for Medicare, routine testing is allowed once every 2 years. The testing frequency can be increased to one year for patients who have rapidly progressing disease, those who are receiving or discontinuing medical therapy to restore bone mass, or have additional risk factors. Assessment & Plan Assessment & Plan (1) Hypothyroidism: Code(s): E03.9 - Hypothyroidism, unspecified Category: Medical Qualifiers: Hypothyroidism type: postablative Qualified Code(s): E89.0 - Postprocedural hypothyroidism Plan: Patient with history of Graves disease with Graves orbitopathy, who had radioactive iodine ablation in 1995, here today for follow-up of postablative hypothyroidism. She was previously on levothyroxine 150 mcg daily for a long period of time, however last year March 2023 was noted to have elevated TSH around 8 in required dose increment, now she is on 175 mcg daily. However she has been out of her refills for the past 1-1/2 weeks. At this point I have refilled her medication. She is complaining of increased tiredness, slowness, weight gain. We will have her do blood work in 6 weeks after going back on her dose and see if she needs any adjustment. She also has Graves orbitopathy, and was following with Dr. Dunn, continues to have symptoms of the dryness and blurry vision, she was referred to go to [place] for consideration of [facility]. I advised her to make a follow up with Dr. Dunn since she has worsening symptoms. Plan: -continue levothyroxine 175 mcg daily -do blood work in 6 weeks -follow up in 8 weeks (2) Osteoporosis: Code(s): M81.0 - Age-related osteoporosis without current pathological fracture Category: Medical Qualifiers: Osteoporosis type: age-related Presence of current pathological fracture: without current pathological fracture Qualified Code(s): M81.0 - Age- related osteoporosis without current pathological fracture Plan: Patient with history of osteoporosis, without any recent fractures, with last bone density scan from 07/2022 showing worsening osteopenia in the lumbar spine with T-score of-1.7 and stable bone density in the hip with lowest T-score of - 1.5 at the femoral neck. She has previously been on Forteo, and then was transitioned to Prolia of which she received 4 doses, and then had treatment ga p, lastly she received an infusion of Reclast in October 2021. She has not monitored with urine NTX, her last NTX level was from May 2022 which was nicely suppressed at 24. Previously it had been elevated in the 60s, suggesting that she was having a good response to Reclast. She is taking good amounts of vitamin-D and does have some incorporation of calcium in her diet. I did reinforce it to her to take at least 3 servings of calcium rich foods daily. Continue vitamin-D 2000 units daily. I will check her vitamin-D levels. I will also recheck her urine NTX at this point to see if her markers are going up. She would be due for repeat bone density in July 2024, which would be around 8 months, I am ordering this today for her to do in July 2024. If her bone resorption markers are going up and she has worsening bone density, we will consider either oral bisphosphonates though she does have history of GERD. She apparently had quite a reaction to Reclast though she is describing just muscle aches that were really bad. I did patient financial counselor her about maintaining adequate hydration around the infusion last taking Tylenol before the infusion. We can consider giving her a 2nd dose specially there is some literature suggesting that prior exposure decreases the chances to adverse exposure to a 2nd infusion. Plan: -repeat urine NTX, calcium, PTH, ionized calcium, phosphorus, magnesium, vitamin-D -bone density to be done in July 2024 -consider another infusion of Reclast -continue vitamin-D 2000 units daily -calcium rich foods to be incorporated in 9 -advised to do weight-bearing exercise -patient continues to smoke, advised her about trying to quit, though she has tried Chantix and bupropion and nothing has worked for her. Plan I spent 30 minutes in reviewing the record, seeing the patient and documenting in the medical record. Orders: Orders Free T4 (Free Thyroxine) 6 Weeks E89.0 - Postprocedural hypothyroidism Parathyroid Hormone Intact 6 Weeks M81.0 - Age-related osteoporosis without current pathological fracture Creatinine 6 Weeks M81.0 - Age-related osteoporosis without current pathological fracture Thyroid Stimulating Hormone 6 Weeks E89.0 - Postprocedural hypothyroidism Collagen Crosslinks NTX 6 Weeks M81.0 - Age-related osteoporosis without current pathological fracture Calcium 6 Weeks M81.0 - Age-related osteoporosis without current pathological fracture Albumin Level 6 Weeks M81.0 - Age-related osteoporosis without current pathological fracture Phosphorus 6 Weeks M81.0 - Age-related osteoporosis without current pathological fracture Calcium, Ionized 6 Weeks M81.0 - Age-related osteoporosis without current pathological fracture Vitamin D 25-OH Total 6 Weeks M81.0 - Age-related osteoporosis without current pathological fracture Magnesium 6 Weeks M81.0 - Age-related osteoporosis without current pathological fracture XR DEXA axial skeleton 7 Months M81.0 - Age-related osteoporosis without current pathological fracture Calcium, Random Urine 6 Weeks M81.0 - Age-related osteoporosis without current pathological fracture Creatinine Urine 6 Weeks M81.0 - Age-related osteoporosis without current pathological fracture Medications: Refilled levothyroxine 175 mcg PO DAILY 30 tabs 5RF Patient Instructions: Do blood work in about 6 weeks as well as urine Urine has to be fasting and second urine of the day Continue vitamin D as it is Try to walk as much as possible Milk, yogurt, cheese: 2-3 servings daily Continue levothyroxine [address] dunn Coding Level of Care Code Est Pt Level 4 (29628) Diagnoses Postablative hypothyroidism E89.0 Hypothyroidism type: postablative Age-related osteoporosis without current pathological fracture M81.0 Osteoporosis type: age-related Presence of current pathological fracture: without current pathological fracture Time Spent (min) 30
[2023-12-28 13:05] VITALS: BP 130/6; PULSE 69; BMI 30.7
== END 2023-12-28 13:58 | disposition home or self-care (01) ==
PROVIDERS: PCP Nurse Practitioner Adult Health; Visit Provider Student in an Organized Health Care Education/Training Program
DX: E89.0 Postprocedural hypothyroidism (principal); M81.0 Age-related osteoporosis without current pathological fracture
CPT/HCPCS: 99214

== ENCOUNTER → 2023-12-28 12:51 | Outpatient (BNVA) | payer MEDICARE, OTHER, SELFPAY | PROVIDERS: PCP Nurse Practitioner Adult Health; Visit Provider Student in an Organized Health Care Education/Training Program | DX: M81.0 Age-related osteoporosis without current pathological fracture (principal); E89.0 Postprocedural hypothyroidism | CPT/HCPCS: 99212 ==

== ENCOUNTER 2024-02-24 11:28 | Outpatient (REF) | payer MEDICARE, OTHER, SELFPAY ==
[2024-02-24 13:28] LABS: Creatinine Urine 26.84 mg/dL
[2024-02-24 13:30] LABS: Parathyroid Hormone Intact 125.7 pg/mL (8.7-77.1)
[2024-02-24 13:33] LABS: Albumin Level 4.5 g/dL (3.5-5.0); Calcium 9.9 mg/dL (8.4-10.2); Estimated Glomerular Filt Rate > 60; Magnesium 2.1 mg/dL (1.6-2.6)
[2024-02-24 13:43] LABS: Free T4 (Free Thyroxine) 1.44 ng/dL (0.71-1.85); Thyroid Stimulating Hormone 0.86 uIU/mL (0.32-4.0)
[2024-02-26 14:29] LABS: Calcium, Ionized 5.2 mg/dL (4.7-5.5)
[2024-02-26 17:27] LABS: Calcium, Random Urine 5.6 mg/dL
[2024-03-02 08:14] LABS: N-Telopeptide 23 (see note); NTXCreaRU 30 mg/dL (20-275)
== END 2024-02-24 11:29 | disposition home or self-care (01) ==
LOC: HO.LAB 11:28
PROVIDERS: PCP Nurse Practitioner Adult Health; Visit Provider Student in an Organized Health Care Education/Training Program
DX: M81.0 Age-related osteoporosis without current pathological fracture (principal); E89.0 Postprocedural hypothyroidism
CPT/HCPCS: 36415; 82040; 82306; 82310; 82330; 82523; 82565; 82570; 83735; 83970; 84100; 84439; 84443

== ENCOUNTER 2024-03-03 10:56 | Outpatient (AMB) | payer MEDICARE, OTHER, SELFPAY ==
[2024-03-03 10:59] VITALS: BP 140/66; PULSE 58; BMI 30.1
--- NOTE | 2024-03-03 10:59 | MHC.OFFVIS ---
Vital Signs 03/03/24 10:59 Height 5 ft 4.96 in Weight 180 lb 8.937 oz BMI 30.1 BP 140/66 H Blood Pressure Location Lt brachial Position Sitting Pulse 58 Pulse Source Pulse Oximeter Intake Visit Reasons: hypothyroidism-conf Intake Note: Patient present today for hypothyroidism follow up visit. Orthopedics Teacher Required: No Accompanied by: Self / Same As Patient Allergies bupropion [From ZYBAN] Allergy (Unknown, Verified 03/03/24 11:03) RASH nafcillin [NAFCILLIN] Allergy (Unknown, Verified 03/03/24 11:03) RASH Penicillins [PENICILLINS] Allergy (Unknown, Verified 03/03/24 11:03) RASH Sulfa (Sulfonamide Antibiotics) Allergy (Unknown, Verified 03/03/24 11:03) Unknown sulfamethoxazole [From BACTRIM] Allergy (Unknown, Verified 03/03/24 11:03) REDNESS, COLD EXTREMITIES trimethoprim [From BACTRIM] Allergy (Unknown, Verified 03/03/24 11:03) REDNESS, COLD EXTREMITIES ceftriaxone Adverse Reaction (Severe, Verified 03/03/24 11:03) Rash mannitol [From Reclast] Adverse Reaction (Unknown, Verified 03/03/24 11:03) Joint Pain water for injection,sterile [From Reclast] Adverse Reaction (Unknown, Verified 03/03/24 11:03) Joint Pain zoledronic acid [From Reclast] Adverse Reaction (Unknown, Verified 03/03/24 11:03) Joint Pain Zyban Allergy (Unknown, Uncoded 03/03/24 11:03) Unknown Medication List - Last Reconciled 03/03/24 by Windy Dumont MD albuterol sulfate 90 mcg/actuation inhalation aspirin 81 mg PO DAILY atorvastatin 80 mg PO DAILY bupropion HCl XL 150 mg PO QAM cholecalciferol (vitamin D3) 50 mcg PO DAILY 30 days doxycycline hyclate 100 mg PO BID fluticasone propionate 50 mcg/actuation sprays intranasal gnoirskxtml-xvercvjlm-fcgzunfi 100-62.5-25 mcg (Trelegy Ellipta) 1 inh inhalation DAILY levothyroxine 175 mcg PO DAILY naltrexone mg PO schisandra mg PO tinidazole 500 mg PO BID HPI Comments Details: 68 yo female today for fup visit, for osteoporosis and hypothyroidism Osteoporosis Treatment history: 07/2016 to July 2018: Ka[place]o 12/2018-06/2018: Prolia 4 doses Subsequently there was a gap in care she was ahving a lot of dental work and then had a stroke 10/2021 Reclast administered Per the chart patient did not tolerate oral bisphosphonates well in the past? Fracture history: left elbow 30 years ago at least, nothing else Denies prior fractures, + GERD, Her mother and grand mother has history of osteoporosis, denies nephrolithiasis, no steroids used, she is still smoking, denies anti seizures medications, no Chronic PPI, no SSRI. Vitamin-D: 2000 units daily Calcium: no supplements, milk 1.5 larges glass a day, cheese occasionally, no yogurt Exercise: doing stairs 5 times a day, walking 20 mins daily Dental issues:no issues, up to date with cleaning For smoking has tried buprion and chantix, didnt work, still smoking 10-20 cigarettes per day Last bone density scan done in July 2022 shows T-score of -1.7 at the lumbar spine consistent with osteopenia with decrease of 13% at the spine since 2019, T-score of-1.5 at the femoral neck and-0.9 at the total femur, also consistent with osteopenia with not much significant change to noted by decrease of 0.7% since 2019. Interval history She has started walking 20 minutes [place] now, and we use the stairs as opposed to not exercising at all. She is also incorporating more calcium in her diet. Blood work showed elevated PTH level of 125.7, however this possibly be the effect of Reclast. The her Reclast was in 2021. When I repeat her bone density in July 2024 I will also obtain a forearm. Calcium levels have been normal. Vitamin-D within good range. Her NTX is still at 23 showing that her bone resorption is still adequately suppressed, we can consider repeating Reclast after the results bone density in July 2024. Postablative hypothyroidism Graves orbitopathy She has PMH of Graves' disease status post radioactive iodine ablation 1994 and Graves orbitopathy, post ablative hypothyroidism. She is currently on Synthroid 175 mcg daily.. Taking it since last Mar 2023, when her TSH was elevated at 8. Was on 150 mcg before that for sometime. She has a good method of administration and she is 100% adherent. December 09 PCP TSH 0.56, free t4 2.0 November 08 TSH TSH 0.83, free t3 3.1 , free t4 two 1.5 Has been off it a week and a half becuase she ran out and PCP office didnt refill and want us to manage her thyroid per patient Says she has been gradually putting on weight since last year, gained 30 lbs over the last year and then recently lost about 8 lbs On off constipation and diarrhea. No heat or cold intolreance. No tremors. No palpitations. Has graves orbitopathy ,sees Dr. King says he advised against Tepezza due to longstanding disease and was told to go to [place] to [facility]. she doesnt want to go to [place]. Complaining of persistent dry eyes, worsening blurry vision. Laboratory Tests Laboratory Tests 02/24/24 02/24/24 08:30 12:02 Creatinine 0.84 Estimated GFR > 60 Calcium 9.9 Ionized Calcium 5.2 Phosphorus 3.0 Magnesium 2.1 Albumin 4.5 N-Telopeptide X-linked 23 25-OH Vitamin D Total 63.0 TSH 0.86 Free T4 1.44 PTH Intact 125.7 H Ur Random Calcium 5.6 Urine Creatinine 26.84 11/23/19 01/20/20 01/20/20 08:20 10:00 10:40 Hgb 13.3 Hct 40.9 Sodium 141 Potassium 4.6 Creatinine 0.84 Est GFR (Non-Af Amer) > 60 Fasting Glucose 85 Calcium AST 14 ALT 15 Alkaline Phosphatase 74 Albumin 4.5 N-Telopeptide X-linked 25 25-OH Vitamin D Total 26.3 Free T4 1.35 TSH 3rd Generation 2.13 PTH Intact 01/20/20 10:40 Hgb Hct Sodium Potassium Creatinine Est GFR (Non-Af Amer) Fasting Glucose Calcium 9.0 AST ALT Alkaline Phosphatase Albumin N-Telopeptide X-linked 25-OH Vitamin D Total Free T4 TSH 3rd Generation PTH Intact 174 H Laboratory Tests 06/30/18 11/18/18 06/11/19 08:20 Unknown 07:45 Creatinine Estimated GFR Calcium Albumin N-Telopeptide X-linked 43 70 22 25-OH Vitamin D Total 1,25 Dihydroxy Vit D 1,25 Dihydroxy Vit D2 1,25 Dihydroxy Vit D3 TSH Free T4 PTH Intact Calcium (PTH Intact) Ur Creatinine 24 Hour Ur Calcium 24 Hr Calcium/Creat 24 Hr 01/20/20 01/20/20 07/04/20 10:00 10:40 08:40 Creatinine Estimated GFR Calcium 8.8 Albumin N-Telopeptide X-linked 25 25-OH Vitamin D Total 26.3 18.3 1,25 Dihydroxy Vit D 59 1,25 Dihydroxy Vit D2 <8 1,25 Dihydroxy Vit D3 59 TSH Free T4 PTH Intact Calcium (PTH Intact) Ur Creatinine 24 Hour Ur Calcium 24 Hr Calcium/Creat 24 Hr 07/04/20 07/17/20 12/19/20 09:10 11:17 14:03 Creatinine Estimated GFR Calcium 9.1 9.3 Albumin 4.4 4.3 N-Telopeptide X-linked 62 25-OH Vitamin D Total 44.3 1,25 Dihydroxy Vit D 1,25 Dihydroxy Vit D2 1,25 Dihydroxy Vit D3 TSH Free T4 PTH Intact 104 H Calcium (PTH Intact) 9.3 Ur Creatinine 24 Hour Ur Calcium 24 Hr Calcium/Creat 24 Hr 08/22/21 08/24/21 10/02/21 15:11 09:30 11:27 Creatinine 0.81 Estimated GFR > 60 Calcium 10.4 H D Albumin 4.6 N-Telopeptide X-linked 25-OH Vitamin D Total 50.9 1,25 Dihydroxy Vit D 1,25 Dihydroxy Vit D2 1,25 Dihydroxy Vit D3 TSH Free T4 PTH Intact 51 Calcium (PTH Intact) 9.9 Ur Creatinine 24 Hour 1.0 Ur Calcium 24 Hr 248 Calcium/Creat 24 Hr 246 05/20/22 08/20/22 05/12/23 11:14 10:07 13:18 Creatinine Estimated GFR Calcium Albumin N-Telopeptide X-linked 24 25-OH Vitamin D Total 1,25 Dihydroxy Vit D 1,25 Dihydroxy Vit D2 1,25 Dihydroxy Vit D3 TSH 2.39 0.98 Free T4 1.01 1.21 PTH Intact Calcium (PTH Intact) Ur Creatinine 24 Hour Ur Calcium 24 Hr Calcium/Creat 24 Hr DEXA 07/24 BONE DENSITOMETRY CLINICAL INDICATION: Osteoporosis. COMPARISON: Previous BD dated 02/15/2020 and baseline BD dated 02/01/2016. TECHNIQUE: Using a Facio DXA System (software version: 13.1) manufactured by [employer], dual-energy x-ray absorptiometry was performed of the lumbar spine and left hip. The images are of good technical quality. Summary results are attached. FINDINGS: AP SPINE L1-L4: Current: BMD 0.979 g/cm2, Z-score -0.5, T-score -1.7, osteopenia, 13.0% decrease from previous, 2.8% increase from baseline (<5% change is not significant). Prior: BMD 1.125 g/cm2. Baseline: BMD 0.952 g/cm2. LEFT FEMUR, NECK: Current: BMD 0.824 g/cm2, Z-score -0.2, T-score -1.5, osteopenia. Prior: BMD 0.822 g/cm2. Baseline: BMD 0.668 g/cm2. LEFT FEMUR, TOTAL: Current: BMD 0.900 g/cm2, Z-score 0.2, T-score -0.9, normal, 0.2% decrease from previous, 11.1% increase from baseline (<5% change is not significant). Prior: BMD 0.902 g/cm2. Baseline: BMD 0.810 g/cm2. IDENTIFIED RISK FACTORS: Menopause, height loss, family history (parent hip fracture), secondary osteoporosis, tobacco use (current smoker), osteoporosis. HISTORY OF FRACTURE: None listed. MEDICATIONS: Vitamin D, bisphosphonate. MM/XR DEXA axial skeleton IMPRESSION: 1. DIAGNOSIS: Osteopenia based on the lowest T-score value of -1.7 in the lumbar spine applying World Health Organization criteria. 2. 10-YEAR FRACTURE RISK PREDICTION, FRAX: Not performed in this patient on estrogen or bone building treatments. 3. Treatment Recommendations: NOF guidelines recommend consideration for treatment in postmenopausal women and men age 50 and older presenting with the following: -A hip or vertebral (clinical or morphometric) fracture. -T-score less than or equal to -2.5 at the femoral neck or spine after appropriate evaluation to exclude secondary causes. -Low bone mass at the hip or spine and a 10-year fracture probability by FRAX of greater than or equal to 3% for hip fracture or greater than or equal to 20% for major osteoporotic fracture based on the [place] adapted WHO algorithm. 4. Other Recommendations: All treatment decisions require clinical judgment and consideration of individual patient factors, including patient preferences, comorbidities, previous drug use, risk factors not captured in the FRAX model (e.g. frailty, falls, vitamin D deficiency, increased bone turnover, interval significant decline in bone density) and possible under or overestimation of fracture risk by FRAX. Additional medical evaluation for secondary cause of low bone mineral density may be appropriate. FUTURE SCAN RECOMMENDATION: People with diagnosed cases of osteoporosis or at high risk for fracture should have regular bone mineral density tests. For patients eligible for Medicare, routine testing is allowed once every 2 years. The testing frequency can be increased to one year for patients who have rapidly progressing disease, those who are receiving or discontinuing medical therapy to restore bone mass, or have additional risk factors. Seeing Dr. King who does not want to give Tepezza per patient . Currently on calcium and vitamin-D. No fracture since last visit Review of systems Constitutional: no fevers, chills or weight loss HEENT: no changes in vision Cardiac: No chest pain, discomfort or palpitations. Pulmonary: No SOB GI:has chronic GI issues : no burning micturition, dysuria or increase in urinary frequency Neurologic: No dizziness, no weakness in extremities MSK: no back pain or joint stiffness Physical exam General: sitting comfortably in bed in no acute distress HEENT: normocephalic/atraumatic, , exophthalmos noted, has lid lag Neck: supple, symmetrical, no thyromegaly , no dorsocervical or supraclavicular fat pads Cardiac: normal heart sounds Pulm: normal breath sounds B/L, no added breath sounds Abd: not distended, no tenderness Extremities: no edema, no signs of myxedema Neuro: AAO x3, Speech: normal, no facial droop, moving all 4 extremities Skin: no rash [facility] Medical History (Updated 08/22/21 @ 14:55 by David Servin MD) Vitamin D deficiency Overweight (BMI 25.0-29.9) Graves' orbitopathy Hypothyroidism Osteoporosis Surgical History History of surgery Hx of hernia repair History of colonoscopy Hx of cholecystectomy Hx of eye surgery Family History Mother No problems noted. Father No problems noted. Social History Alcohol intake: current Alcohol intake frequency: holidays/special occasions only Patient Tobacco Use Status: Current everyday Tobacco user Cigarette Packs Per Day: 0.5 Physical Exam Vital Signs: Last Vital Signs Pulse 58 03/03/24 10:59 BP 140/66 H 03/03/24 10:59 BMI result Body Mass Index 30.1 Assessment & Plan Assessment & Plan (1) Hypothyroidism: Code(s): E03.9 - Hypothyroidism, unspecified Category: Medical Qualifiers: Hypothyroidism type: postablative Qualified Code(s): E89.0 - Postprocedural hypothyroidism Plan: Patient with history of Graves disease with Graves orbitopathy, who had radioactive iodine ablation in 1995, here today for follow-up of postablative hypothyroidism. She was previously on levothyroxine 150 mcg daily for a long period of time, however last year March 2023 was noted to have elevated TSH around 8 in required dose increment, now she is on 175 mcg daily. Most recent TSH normal. She also has Graves orbitopathy, and was following with Dr. Dunn, continues to have symptoms of the dryness and blurry vision, she was referred to go to [place] for consideration of Tepezza. I advised her to make a follow up with Dr. Dunn since she has worsening symptoms. Plan: -continue levothyroxine 175 mcg daily -repeat blood work in July 2024 (2) Osteoporosis: Code(s): M81.0 - Age-related osteoporosis without current pathological fracture Category: Medical Qualifiers: Osteoporosis type: age-related Presence of current pathological fracture: without current pathological fracture Qualified Code(s): M81.0 - Age-related osteoporosis without current pathological fracture Plan: Patient with history of osteoporosis, without any recent fractures, with last bone density scan from 07/2022 showing worsening osteopenia in the lumbar spine with T-score of-1.7 and stable bone density in the hip with lowest T-score of -1.5 at the femoral neck. She has previously been on Forteo, and then was transitioned to Prolia of which she received 4 doses, and then had treatment gap, lastly she received an infusion of Reclast in October 2021. She has not monitored with urine NTX, her last NTX level was from May 2022 which was nicely suppressed at 24. Previously it had been elevated in the 60s, suggesting that she was having a good response to Reclast. She is taking good amounts of vitamin-D and does have some incorporation of calcium in her diet. I did reinforce it to her to take at least 3 servings of calcium rich foods daily. Continue vitamin-D 2000 units daily. She has started walking 20 minutes [place] now, and we use the stairs as opposed to not exercising at all. She is also incorporating more calcium in her diet. Blood work showed elevated PTH level of 125.7, however this possibly be the effect of Reclast. The her Reclast was in 2021. When I repeat her bone density in July 2024 I will also obtain a forearm. Calcium levels have been normal. Vitamin-D within good range. Her NTX is still at 23 showing that her bone resorption is still adequately suppressed, we can consider repeating Reclast after the results bone density in July 2024. we will consider either oral bisphosphonates though she does have history of GERD. She apparently had quite a reaction to Reclast though she is describing just muscle aches that were really bad. I did residential treatment counselor her about maintaining adequate hydration around the infusion last taking Tylenol before the infusion. We can consider giving her a 2nd dose specially there is some literature suggesting that prior exposure decreases the chances to adverse exposure to a 2nd infusion. Plan: -repeat urine NTX, calcium, PTH, ionized calcium, phosphorus, magnesium, vitamin-D in July 2024 -bone density to be done in July 2024 -consider another infusion of Reclast at follow up in August 2024 -continue vitamin-D 2000 units daily -calcium rich foods to be incorporated in 9 -advised to do weight-bearing exercise -patient continues to smoke, advised her about trying to quit, though she has tried Chantix and bupropion and nothing has worked for her. Plan I spent 30 minutes in reviewing the record, seeing the patient and documenting in the medical record. Orders: Orders Thyroid Stimulating Hormone 07/04/24 E89.0 - Postprocedural hypothyroidism, M81.0 - Age-related osteoporosis without current pathological fracture Free T4 (Free Thyroxine) 07/04/24 E89.0 - Postprocedural hypothyroidism, M81.0 - Age-related osteoporosis without current pathological fracture Albumin Level 07/04/24 E89.0 - Postprocedural hypothyroidism, M81.0 - Age-related osteoporosis without current pathological fracture Calcium 07/04/24 E89.0 - Postprocedural hypothyroidism, M81.0 - Age-related osteoporosis without current pathological fracture Parathyroid Hormone Intact 07/04/24 E89.0 - Postprocedural hypothyroidism, M81.0 - Age-related osteoporosis without current pathological fracture Alkaline Phosphatase Bone 07/04/24 E89.0 - Postprocedural hypothyroidism, M81.0 - Age-related osteoporosis without current pathological fracture Collagen Crosslinks NTX 07/04/24 E89.0 - Postprocedural hypothyroidism, M81.0 - Age-related osteoporosis without current pathological fracture XR DEXA appendicular skeleton 07/13/24 M81.0 - Age-related osteoporosis without current pathological fracture XR DEXA axial skeleton 07/13/24 M81.0 - Age-related osteoporosis without current pathological fracture Phosphorus 07/04/24 E89.0 - Postprocedural hypothyroidism, M81.0 - Age-related osteoporosis without current pathological fracture Vitamin D 25-OH Total 07/04/24 E89.0 - Postprocedural hypothyroidism, M81.0 - Age-related osteoporosis without current pathological fracture Basic Metabolic Panel 07/04/24 E89.0 - Postprocedural hypothyroidism, M81.0 - Age-related osteoporosis without current pathological fracture Calcium, Random Urine 07/04/24 E89.0 - Postprocedural hypothyroidism, M81.0 - Age-related osteoporosis without current pathological fracture Creatinine Urine 07/04/24 E89.0 - Postprocedural hypothyroidism, M81.0 - Age-related osteoporosis without current pathological fracture Medications: Refilled levothyroxine 175 mcg PO DAILY 90 tabs 3RF Patient Instructions: Do blood work and urine in July 2024 as well as bone density Continue vitamin D as it is Try to walk as much as possible Milk, yogurt, cheese: 2-3 servings daily Continue levothyroxine 175 mcg daily Follow up about eyes Tamy Ahn MD at [facility] Coding Level of Care Code Est Pt Level 4 (02859) Diagnoses Postablative hypothyroidism E89.0 Hypothyroidism type: postablative Age-related osteoporosis without current pathological fracture M81.0 Osteoporosis type: age-related Presence of current pathological fracture: without current pathological fracture Time Spent (min) 30
== END 2024-03-03 11:49 | disposition home or self-care (01) ==
LOC: HO.ENCR 10:57
PROVIDERS: PCP Nurse Practitioner Adult Health; Visit Provider Student in an Organized Health Care Education/Training Program
DX: E89.0 Postprocedural hypothyroidism (principal); M81.0 Age-related osteoporosis without current pathological fracture
CPT/HCPCS: 99214

== ENCOUNTER → 2024-03-03 10:56 | Outpatient (BNVA) | payer MEDICARE, OTHER, SELFPAY | PROVIDERS: PCP Nurse Practitioner Adult Health; Visit Provider Student in an Organized Health Care Education/Training Program | DX: M81.0 Age-related osteoporosis without current pathological fracture (principal); E89.0 Postprocedural hypothyroidism; Z78.0 Asymptomatic menopausal state; Z72.0 Tobacco use; Z79.83 Long term (current) use of bisphosphonates | CPT/HCPCS: 99212 ==

== ENCOUNTER 2024-05-30 10:45 | Outpatient (REF) | payer MEDICARE, OTHER, SELFPAY ==
--- OUTSIDE RECORDS SUMMARY | 2024-05-30 15:34 | XMS_ITS | Clinical Summary ---
Author Organization [facility] Address [address] [place] [address] Care Team Providers Care Senior Wealth Advisor Name Role Phone Sameera Herminia J Primary Care Provider [phone] Allergies Active Allergy Reactions Criticality Noted Date Comments Penicillin G Sodium Rash Low 11/24/2016 Medications Medication Sig Dispensed Refills Start Date End Date Status Calcium-Vitamin D-Vitamin K 500-1000-40 MG-UNT-MCG CHEW 0 Active Melatonin 5 MG TABSIndications:Cary marion insomnia TAKE 1 TABLET BY MOUTH EVERY DAY 30 each 11 10/26/2017 Active levothyroxine (SYNTHROID, LEVOXY) tablet 175 mcg Take 1 tablet (175 mcg total) by mouth daily. 90 tablet 4 05/18/2018 Active Additional Information Patient taking differently: 137 mcgOral Daily, Reason: Other, Reported on 02/10/2019 traZODone (DESYREL) 50 MG tabletIndications:P rimary insomnia TAKE 1 TABLET EVERY NIGHT AT BEDTIME 30 tablet 12 03/23/2019 Active buPROPion (WELLBUTRIN XL) 300 MG 24 hr tablet Take 1 tablet (300 mg total) by mouth daily. 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 Overview: 09/2017 30 day event:PCV's occassional bijemity, ECHO LVEF wnl, normal valve structure, normal PA pressure Dr Burrell add low dose BBlocker if symptomatic GERD (gastroesophageal reflux disease) 7 Overview: Mild Esophagitis, small H Hernia S/P colonoscopy 03/04/2007 Overview: TIC Dr Clarke repeat 5-8 yrs + FH Ovarian/renal Ca Hypothyroidism Osteoporosis Overview: DEXA T-2.5 hips, FRAX 14%/5% (Forteo 08/2016- Hyperlipemia Eczema Tobacco abuse Overview: 45 yrs x 1.5ppd Lung Cancer screening 02/2016 nodules ( largest 3mm JENNY- prob benign) repeat [address] Fisher Benign microscopic hematuria Breast cancer screening by mammogram Overview: 01/2016 Negative Encounter for screening for lung cancer Overview: Lung Cancer screening 02/2016 nodules ( largest 3mm JENNY- prob benign), 02/2017 RAD cat 2 benign findings repeat [address] Fisher Erythema multiforme Overview: NSAIDs trigger Family history of cancer Overview: genetic testing: Osteoarthritis Overview: Lt hip moderate OA Scoliosis Overview: slight Immunizations Name Administration Dates Next Due Influenza Trivalent (Fluzone High Dose) 0.7 mL (65yrs &>) 02/10/2019 Pneumococcal Conjugate PCV7 01/11/2016 Tdap 08/06/2014 Zostavax (Zoster Live) 06/06/2016 Family History Medical History Relation Name Comments Cancer Father basal cell Esophageal cancer Maternal Aunt Skin cancer Maternal Grandfather Cancer Mother kidney Dementia Mother Prostate cancer Paternal Grandfather Cancer Sister 1 ovarian No Sig Med Hx Sister 2 No Sig Med Hx Sister 3 No Sig Med Hx Sister 4 Relation Name Status Comments Father Alive Basal cell carc inoma Maternal Aunt Maternal Grandfather Maternal Grandmother Mother Alive kidney Paternal Grandfather Paternal Grandmother Sister 1 Ovarian Sister 2 Alive Sister 3 Alive Sister 4 Alive Social History Tobacco Use Types Packs/Day Years Used Date Smoking Tobacco: Every Day Cigarettes 1 50 Started: 08/18/1969 Smokeless Tobacco: Never Tobacco Cessation:Ready to Q uit: No Alcohol Use Standard Drinks/Week Comments Yes 0 (1 standard drink = 0.6 oz pur e alcohol) rare Sex and Gender Information Value Date Recorded Sex Assigned at Not on file Gender Identity Not on file Sexual Orientation Not on file Last Filed Vital Signs Vital Sign Reading Time Taken Comments Blood Pressure 110/64 02/10/2019 10:20 AM EDT Pulse 61 02/10/2019 10:20 AM EDT Temperature 36.5 ??C (97.7 ??F) 02/10/2019 10:20 AM E DT Respiratory Rate - - Oxygen Saturation 98% 02/10/2019 10:20 AM EDT Inhaled Oxygen Concentration - - Weight 76.7 kg (169 lb) 02/10/2019 10:20 AM EDT Height 162.6 cm (5' 4 ) 02/10/2019 10:20 AM EDT Body Mass Index 29.01 02/10/2019 10:20 AM EDT Plan of Treatment Health Maintenance Due Date Last Done Comments Hepatitis C Screening 1955 COVID-19 Vaccine (#1) 1955 Tobacco Cessation Counseling 1973 Pneumococcal Vaccine (2 of 2 - PPSV23 or PCV20) 03/07/2016 01/11/2016 Colon Cancer Screening (Colonoscopy) 03/19/2017 03/19/2007 Shingrix-Zoster Vaccine (2 o f 2) 02/19/2018 12/25/2017 (Declined), 12/25/2017 Depression Screening 12/25/2018 12/25/2017 Preventative Health Evaluation 12/25/2018 12/25/2017 Lung Cancer Screening (Low Dose CT) 03/22/2019 03/22/2018, 02/01/2017 Breast Cancer Screening (Mammogram) 02/03/2020 02/02/2018 BMI Counseling 02/11/2020 02/10/2019 Fall Risk Assessment 2020 Osteoporosis Screening (DEXA Scan) 2020 Influenza Vaccine (#1) 2024 02/10/2019 DTap / Tdap / Td (3 - Td or Tdap) 08/18/2024 08/18/2014, 08/06/2014 RSV Adult > 60+ Yrs or (1 - 1-dose 75+ series) 2030 Hepatitis B Vaccines Aged Out No long er eligible based on patient's age to complete this topic RSV Ped < 20 months Aged Out No longe r eligible based on patient's age to complete this topic Care Teams Senior Wealth Advisor Relationship Specialty Start Date End Date Herminia Brasher DO PCP - General Family Medicine 07/30/17
== END 2024-05-30 10:46 | disposition home or self-care (01) ==
LOC: HO.MAMMO 10:45
PROVIDERS: PCP Nurse Practitioner Adult Health; Visit Provider Nurse Practitioner Adult Health
DX: Z12.31 Encounter for screening mammogram for malignant neoplasm of breast (principal)
CPT/HCPCS: 77063; 77067

== ENCOUNTER → 2024-05-30 11:00 | Outpatient (BNV) | payer MEDICARE, OTHER, SELFPAY | PROVIDERS: PCP Nurse Practitioner Adult Health; Visit Provider Internal Medicine | DX: Z12.31 Encounter for screening mammogram for malignant neoplasm of breast (principal) | CPT/HCPCS: 77063; 77067 ==

== ENCOUNTER 2024-07-19 08:03 | Outpatient (REF) | payer MEDICARE, OTHER, SELFPAY ==
--- NOTE | ~2024-07-19 | MM_ITS ---
EXAMINATION: DXA BONE DENSITY AXIAL HISTORY: Estrogen deficiency TECHNIQUE: [employer] Dual energy absorptiometry (DEXA) of the lumbar spine, total left hip, and femoral neck was performed. COMPARISON: Comparison is made with the prior examination dated 07/14/2022. FINDINGS: The bone mineral density of the lumbar spine is 1.152 with a T-score of -0.2, and a Z-score of 0.8. This represents a BMD change of 17.7% compared to the prior exam. This is statistically significant. The bone mineral density of the left total hip is 0.889 with a T-score of -0.9, and a Z-score of 0.0. This represents a BMD change of -1.2% compared to the prior exam. This is not statistically significant. The bone mineral density of the left femoral neck is 0.868 with a T-score of -1.2, and a Z-score of 0.0. This represents a BMD change of 5.3% compared to the prior exam. FRACTURE RISK: The FRAX index suggests a ten year probability of major osteoporotic fracture of 28.2%, and of hip fracture 7.5%. MM/XR DEXA axial skeleton IMPRESSION: Based on bone mineral density, and according to World Health Organization (WHO) criteria, the diagnosis is consistent with osteopenia. All bone density values are in grams per centimeter squared (g/cm2). Statistically, 68% of repeat scans fall within 1 SD (+/- 0.010 g/cm2 for AP spine L1-L4) and 1 SD (+/- 0.012 g/cm2 for femur total) FRAX is a trademark of the [employer]'s [place] [facility] Metabolic Bone Disease, a World Health Organization (WHO) Collaborating Center. Electronically signed by: David Doan MD 07/19/2024 09:16 AM EDT
--- OUTSIDE RECORDS SUMMARY | 2024-07-19 08:10 | XMS_ITS | Clinical Summary ---
Author Organization [facility] Address [address] [place] [address] Care Team Providers Care Optimization Consultant Name Role Phone Sameera Herminia J Primary Care Provider [phone] Allergies Active Allergy Reactions Criticality Noted Date [...] age to complete this topic Care Teams Optimization Consultant Relationship Specialty Start Date End Date Herminia Brasher DO PCP - General Family Medicine 07/30/17
== END 2024-07-19 08:04 | disposition home or self-care (01) ==
LOC: HO.MAMMO 08:03
PROVIDERS: PCP Nurse Practitioner Adult Health; Visit Provider Student in an Organized Health Care Education/Training Program
DX: M81.0 Age-related osteoporosis without current pathological fracture (principal)
CPT/HCPCS: 77080

== ENCOUNTER → 2024-07-19 08:15 | Outpatient (BNV) | payer MEDICARE, OTHER, SELFPAY | PROVIDERS: PCP Nurse Practitioner Adult Health; Visit Provider Radiology Diagnostic Radiology | DX: E28.39 Other primary ovarian failure (principal) | CPT/HCPCS: 77080 ==

== ENCOUNTER 2024-08-23 11:17 | Outpatient (AMB) | payer MEDICARE, OTHER, SELFPAY ==
--- NOTE | 2024-08-23 11:18 | A.OFFVIS_ITS ---
Vital Signs 08/23/24 11:19 Height 5 ft 4.96 in Weight 187 lb 2.759 oz BMI 31.2 BP 124/62 Blood Pressure Location Lt brachial Position Sitting Pulse 70 Pulse Source Pulse Oximeter Pulse Oximetry (%) 95 Oxygen Delivery Method Room Air Intake Visit Reasons: hypothyroidism Intake Note: Patient present today for hypothyroidism office visit. It Professional Required: No Accompanied by: Self / Same As Patient Allergies bupropion [From ZYBAN] Allergy (Unknown, Verified 08/23/24 11:23) RASH nafcillin [NAFCILLIN] Allergy (Unknown, Verified 08/23/24 11:23) RASH Penicillins [PENICILLINS] Allergy (Unknown, Verified 08/23/24 11:23) RASH Sulfa (Sulfonamide Antibiotics) Allergy (Unknown, Verified 08/23/24 11:23) Unknown sulfamethoxazole [From BACTRIM] Allergy (Unknown, Verified 08/23/24 11:23) REDNESS, COLD EXTREMITIES trimethoprim [From BACTRIM] Allergy (Unknown, Verified 08/23/24 11:23) REDNESS, COLD EXTREMITIES ceftriaxone Adverse Reaction (Severe, Verified 08/23/24 11:23) Rash mannitol [From Reclast] Adverse Reaction (Unknown, Verified 08/23/24 11:23) Joint Pain water for injection,sterile [From Reclast] Adverse Reaction (Unknown, Verified 08/23/24 11:23) Joint Pain zoledronic acid [From Reclast] Adverse Reaction (Unknown, Verified 08/23/24 11:23) Joint Pain Zyban Allergy (Unknown, Uncoded 08/23/24 11:23) Unknown Medication List - Last Reconciled 08/23/24 by Windy Dumont MD albuterol sulfate 90 mcg/actuation inhalation aspirin 81 mg PO DAILY atorvastatin 80 mg PO DAILY bupropion HCl XL 150 mg PO QAM cholecalciferol (vitamin D3) 50 mcg PO DAILY 30 days fluticasone propionate 50 mcg/actuation sprays intranasal dmhmlsxtszh-kqslabizt-bnlspfwf 100-62.5-25 mcg (Trelegy Ellipta) 1 inh inhalation DAILY levothyroxine 175 mcg PO DAILY mecobalamin (vitamin B12) mcg PO naltrexone mg PO Saccharomyces boulardii (Daily Probiotic (S. boulardii)) 250 mg PO BID schisandra mg PO HPI Comments Details: 68 yo female today for fup visit, for osteoporosis and hypothyroidism Osteoporosis Treatment history: 07/2016 to July 2018: Forteo 12/2018-06/2018: Prolia 4 doses Subsequently there was a gap in care she was ahving a lot of dental work and then had a stroke 10/2021 Reclast administered Per the chart patient did not tolerate oral bisphosphonates well in the past? Fracture history: left elbow 30 years ago at least, nothing else Denies prior fractures, + GERD, Her mother and grand mother has history of osteoporosis, denies nephrolithiasis, no steroids used, she is still smoking, denies anti seizures medications, no Chronic PPI, no SSRI. Vitamin-D: 2000 units daily Calcium: no supplements, milk 1.5 larges glass a day, cheese occasionally, no yogurt Exercise: doing stairs 5 times a day, walking 20 mins daily Dental issues:no issues, up to date with cleaning For smoking has tried buprion and chantix, didnt work, still smoking 10-20 cigarettes per day Last bone density scan done in July 2022 shows T-score of -1.7 at the lumbar spine consistent with osteopenia with decrease of 13% at the spine since 2019, T-score of-1.5 at the femoral neck and-0.9 at the total femur, also consistent with osteopenia with not much significant change to noted by decrease of 0.7% since 2019. Interval history DEXA scan 07/19/2024 showed T-score of -0.2 at the lumbar spine with the increase of 17.7% compared to bone density in 2022, T-score of -0.9 at the left total hip with a decrease of-1.2% which is not statistically significant, and left femoral neck T-score of-1.2, with increase of 5.3% compared to prior exam. Overall bone density shows osteopenia of the hip and lumbar spine with increase in bone density that is significant at the spine and somewhat stable of the hip. Forgot to do blood work and resorptions markers Smoking 10 to 15 cigarettes per day Walking 15 to 20 mins daily No falls or fractures Vitamin D 2000 units daily Calcium: no supplements, milk 1.5 larges glass a day, cheese occasionally, yogurt daily Dental issues:no issues, up to date with cleaning Postablative hypothyroidism Graves orbitopathy She has PMH of Graves' disease status post radioactive iodine ablation 1994 and Graves orbitopathy, post ablative hypothyroidism. She is currently on levothyroxine 175 mcg daily.. Taking it since last Mar 2023, when her TSH was elevated at 8. Was on 150 mcg before that for sometime. She has a good method of administration and she is 100% adherent. December 25 PCP TSH 0.56, free t4 2.0 November 24TSH 0.83, free t3 3.1 , free t4 two 1.5 Interval history Continues on levothyroxine 175 mcg daily Wt stable since February 2024 On off constipation and diarrhea. No heat or cold intolreance. No tremors. No palpitations. Has graves orbitopathy ,sees Dr. King says he advised against Tepezza due to longstanding disease and was told to go to [place] to [facility]. she doesnt want to go to [place]. Complaining of persistent dry eyes, worsening blurry vision. However she recently had visit with Dr. King's office and says everything was stable. Physical exam General: sitting comfortably in no acute distress HEENT: Exophthalmos and lid lag noted Neck: supple Cardiac: normal heart sounds Pulm: normal breath sounds B/L, no added breath sounds Abd: not distended, no tenderness Extremities: no edema, no signs of myxedema Laboratory Tests Laboratory Tests 02/24/24 02/24/24 08:30 12:02 Creatinine 0.84 Estimated GFR > 60 Calcium 9.9 Ionized Calcium 5.2 Phosphorus 3.0 Magnesium 2.1 Albumin 4.5 N-Telopeptide X-linked 23 25-OH Vitamin D Total 63.0 TSH 0.86 Free T4 1.44 PTH Intact 125.7 H Ur Random Calcium 5.6 Urine Creatinine 26.84 11/23/19 01/20/20 01/20/20 08:20 10:00 10:40 Hgb 13.3 Hct 40.9 Sodium 141 Potassium 4.6 Creatinine 0.84 Est GFR (Non-Af Amer) > 60 Fasting Glucose 85 Calcium AST 14 ALT 15 Alkaline Phosphatase 74 Albumin 4.5 N-Telopeptide X-linked 25 25-OH Vitamin D Total 26.3 Free T4 1.35 TSH 3rd Generation 2.13 PTH Intact 01/20/20 10:40 Hgb Hct Sodium Potassium Creatinine Est GFR (Non-Af Amer) Fasting Glucose Calcium 9.0 AST ALT Alkaline Phosphatase Albumin N-Telopeptide X-linked 25-OH Vitamin D Total Free T4 TSH 3rd Generation PTH Intact 174 H Laboratory Tests 06/30/18 11/18/18 06/11/19 08:20 Unknown 07:45 Creatinine Estimated GFR Calcium Albumin N-Telopeptide X-linked 43 70 22 25-OH Vitamin D Total 1,25 Dihydroxy Vit D 1,25 Dihydroxy Vit D2 1,25 Dihydroxy Vit D3 TSH Free T4 PTH Intact Calcium (PTH Intact) Ur Creatinine 24 Hour Ur Calcium 24 Hr Calcium/Creat 24 Hr 01/20/20 01/20/20 07/04/20 10:00 10:40 08:40 Creatinine Estimated GFR Calcium 8.8 Albumin N-Telopeptide X-linked 25 25-OH Vitamin D Total 26.3 18.3 1,25 Dihydroxy Vit D 59 1,25 Dihydroxy Vit D2 <8 1,25 Dihydroxy Vit D3 59 TSH Free T4 PTH Intact Calcium (PTH Intact) Ur Creatinine 24 Hour Ur Calcium 24 Hr Calcium/Creat 24 Hr 07/04/20 07/17/20 12/19/20 09:10 11:17 14:03 Creatinine Estimated GFR Calcium 9.1 9.3 Albumin 4.4 4.3 N-Telopeptide X-linked 62 25-OH Vitamin D Total 44.3 1,25 Dihydroxy Vit D 1,25 Dihydroxy Vit D2 1,25 Dihydroxy Vit D3 TSH Free T4 PTH Intact 104 H Calcium (PTH Intact) 9.3 Ur Creatinine 24 Hour Ur Calcium 24 Hr Calcium/Creat 24 Hr 08/22/21 08/24/21 10/02/21 15:11 09:30 11:27 Creatinine 0.81 Estimated GFR > 60 Calcium 10.4 H D Albumin 4.6 N-Telopeptide X-linked 25-OH Vitamin D Total 50.9 1,25 Dihydroxy Vit D 1,25 Dihydroxy Vit D2 1,25 Dihydroxy Vit D3 TSH Free T4 PTH Intact 51 Calcium (PTH Intact) 9.9 Ur Creatinine 24 Hour 1.0 Ur Calcium 24 Hr 248 Calcium/Creat 24 Hr 246 05/20/22 08/20/22 05/12/23 11:14 10:07 13:18 Creatinine Estimated GFR Calcium Albumin N-Telopeptide X-linked 24 25-OH Vitamin D Total 1,25 Dihydroxy Vit D 1,25 Dihydroxy Vit D2 1,25 Dihydroxy Vit D3 TSH 2.39 0.98 Free T4 1.01 1.21 PTH Intact Calcium (PTH Intact) Ur Creatinine 24 Hour Ur Calcium 24 Hr Calcium/Creat 24 Hr EXAMINATION: DXA BONE DENSITY AXIAL 07/19/24 HISTORY: Estrogen deficiency TECHNIQUE: [employer] Dual energy absorptiometry (DEXA) of the lumbar spine, total left hip, and femoral neck was performed. COMPARISON: Comparison is made with the prior examination dated 07/14/2022. FINDINGS: The bone mineral density of the lumbar spine is 1.152 with a T-score of -0.2, and a Z-score of 0.8. This represents a BMD change of 17.7% compared to the prior exam. This is statistically significant. The bone mineral density of the left total hip is 0.889 with a T-score of -0.9, and a Z-score of 0.0. This represents a BMD change of -1.2% compared to the prior exam. This is not statistically significant. The bone mineral density of the left femoral neck is 0.868 with a T-score of -1.2, and a Z-score of 0.0. This represents a BMD change of 5.3% compared to the prior exam. FRACTURE RISK: The FRAX index suggests a ten year probability of major osteoporotic fracture of 28.2%, and of hip fracture 7.5%. MM/XR DEXA axial skeleton IMPRESSION: Based on bone mineral density, and according to World Health Organization (WHO) criteria, the diagnosis is consistent with osteopenia. DEXA 07/24 BONE DENSITOMETRY CLINICAL INDICATION: Osteoporosis. COMPARISON: Previous BD dated 02/15/2020 and baseline BD dated 02/01/2016. TECHNIQUE: Using a [employer] DXA System (software version: 13.1) manufactured by [employer], dual-energy x-ray absorptiometry was performed of the lumbar spine and left hip. The images are of good technical quality. Summary results are attached. FINDINGS: AP SPINE L1-L4: Current: BMD 0.979 g/cm2, Z-score -0.5, T-score -1.7, osteopenia, 13.0% decrease from previous, 2.8% increase from baseline (<5% change is not significant). Prior: BMD 1.125 g/cm2. Baseline: BMD 0.952 g/cm2. LEFT FEMUR, NECK: Current: BMD 0.824 g/cm2, Z-score -0.2, T-score -1.5, osteopenia. Prior: BMD 0.822 g/cm2. Baseline: BMD 0.668 g/cm2. LEFT FEMUR, TOTAL: Current: BMD 0.900 g/cm2, Z-score 0.2, T-score -0.9, normal, 0.2% decrease from previous, 11.1% increase from baseline (<5% change is not significant). Prior: BMD 0.902 g/cm2. Baseline: BMD 0.810 g/cm2. IDENTIFIED RISK FACTORS: Menopause, height loss, family history (parent hip fracture), secondary osteoporosis, tobacco use (current smoker), osteoporosis. HISTORY OF FRACTURE: None listed. MEDICATIONS: Vitamin D, bisphosphonate. MM/XR DEXA axial skeleton IMPRESSION: 1. DIAGNOSIS: Osteopenia based on the lowest T-score value of -1.7 in the lumbar spine applying World Health Organization criteria. 2. 10-YEAR FRACTURE RISK PREDICTION, FRAX: Not performed in this patient on estrogen or bone building treatments. 3. Treatment Recommendations: NOF guidelines recommend consideration for treatment in postmenopausal women and men age 50 and older presenting with the following: -A hip or vertebral (clinical or morphometric) fracture. -T-score less than or equal to -2.5 at the femoral neck or spine after appropriate evaluation to exclude secondary causes. -Low bone mass at the hip or spine and a 10-year fracture probability by FRAX of greater than or equal to 3% for hip fracture or greater than or equal to 20% for major osteoporotic fracture based on the [place] adapted WHO algorithm. 4. Other Recommendations: All treatment decisions require clinical judgment and consideration of individual patient factors, including patient preferences, comorbidities, previous drug use, risk factors not captured in the FRAX model (e.g. frailty, falls, vitamin D deficiency, increased bone turnover, interval significant decline in bone density) and possible under or overestimation of fracture risk by FRAX. Additional medical evaluation for secondary cause of low bone mineral density may be appropriate. FUTURE SCAN RECOMMENDATION: People with diagnosed cases of osteoporosis or at high risk for fracture should have regular bone mineral density tests. For patients eligible for Medicare, routine testing is allowed once every 2 years. The testing frequency can be increased to one year for patients who have rapidly progressing disease, those who are receiving or discontinuing medical therapy to restore bone mass, or have additional risk factors. Seeing Dr. King who does not want to give Tepezza per patient . Currently on calcium and vitamin-D. No fracture since last visit Review of systems Constitutional: no fevers, chills or weight loss HEENT: no changes in vision Cardiac: No chest pain, discomfort or palpitations. Pulmonary: No SOB GI:has chronic GI issues : no burning micturition, dysuria or increase in urinary frequency Neurologic: No dizziness, no weakness in extremities MSK: no back pain or joint stiffness Physical exam General: sitting comfortably in bed in no acute distress HEENT: normocephalic/atraumatic, , exophthalmos noted, has lid lag Neck: supple, symmetrical, no thyromegaly , no dorsocervical or supraclavicular fat pads Cardiac: normal heart sounds Pulm: normal breath sounds B/L, no added breath sounds Abd: not distended, no tenderness Extremities: no edema, no signs of myxedema Neuro: AAO x3, Speech: normal, no facial droop, moving all 4 extremities Skin: no rash PFSH Medical History (Updated 08/22/21 @ 14:55 by David Servin MD) Vitamin D deficiency Overweight (BMI 25.0-29.9) Graves' orbitopathy Hypothyroidism Osteoporosis Surgical History History of surgery Hx of hernia repair History of colonoscopy Hx of cholecystectomy Hx of eye surgery Family History Mother No problems noted. Father No problems noted. Social History Alcohol intake: current Alcohol intake frequency: holidays/special occasions only Patient Tobacco Use Status: Current everyday Tobacco user Cigarette Packs Per Day: 0.5 Assessment & Plan Assessment & Plan (1) Hypothyroidism: Code(s): E03.9 - Hypothyroidism, unspecified Category: Medical Qualifiers: Hypothyroidism type: postablative Qualified Code(s): E89.0 - Postprocedural hypothyroidism Plan: Patient with history of Graves disease with Graves orbitopathy, who had radioactive iodine ablation in 1995, here today for follow-up of postablative hypothyroidism. She was previously on levothyroxine 150 mcg daily for a long period of time, however last year March 2023 was noted to have elevated TSH around 8 in required dose increment, now she is on 175 mcg daily. Most recent TSH normal from February 2024. She also has Graves orbitopathy, and was following with Dr. Dunn, continues to have symptoms of the dryness and blurry vision, she was referred to go to [place] for consideration of Tepezza. She did not want to go to [place], had recent follow up with the office of Dr. Dunn however says everything was stable.. Plan: -continue levothyroxine 175 mcg daily -repeat TSH and free T4 now (2) Osteoporosis: Code(s): M81.0 - Age-related osteoporosis without current pathological fracture Category: Medical Qualifiers: Osteoporosis type: age-related Presence of current pathological fracture: without current pathological fracture Qualified Code(s): M81.0 - Age- related osteoporosis without current pathological fracture Plan: Patient with history of osteoporosis, without any recent fractures, with last bone density scan from 07/19/2024 showed T-score of -0.2 at the lumbar spine with the increase of 17.7% compared to bone density in 2022, T-score of -0.9 at the left total hip with a decrease of-1.2% which is not statistically significant, and left femoral neck T-score of-1.2, with increase of 5.3% compared to prior exam. Overall bone density shows osteopenia of the hip and lumbar spine with increase in bone density that is significant at the spine and somewhat stable of the hip. Though when I reviewed the images she does seem to have a lot of arthritis in her back, this could be falsely elevating the a bone density at the spine.. She has previously been on Forteo, and then was transitioned to Prolia of which she received 4 doses, and then had treatment gap, lastly she received an infusion of Reclast in October 2021. She has been monitored with urine NTX, her last NTX level was from May 2022 which was nicely suppressed at 24. Previously it had been elevated in the 60s, suggesting that she was having a good response to Reclast. She is taking good amounts of vitamin-D and does have incorporation of calcium in her diet. I did reinforce it to her to take at least 3 servings of calcium rich foods daily. Continue vitamin-D 2000 units daily. She is walking 20 minutes , and we use the stairs as opposed to not exercising at all. She is also incorporating more calcium in her diet. Blood work from February 2024 showed elevated PTH level of 125.7, however this possibly be the effect of Reclast. Though her Reclast was in 2021. Calcium levels have been normal. Vitamin-D within good range. Her NTX from February 2024 was at 23 showing that her bone resorption was adequately suppressed, we will repeat bone resorption markers now and we can consider repeating Reclast given she has ongoing risk factor of being an active smoker. we we could also consider either oral bisphosphonates though she does have history of GERD. She apparently had quite a reaction to Reclast though she is describing just muscle aches that were really bad. I did child guidance counselor her about maintaining adequate hydration around the infusion last taking Tylenol before the infusion. We can consider giving her a 2nd dose specially there is some literature suggesting that prior exposure decreases the chances to adverse exposure to a 2nd infusion. Plan: -repeat urine NTX, calcium, PTH, ionized calcium, phosphorus, magnesium, vitamin-D , creatinine, CTX, bone specific alkaline phosphatase now -consider another infusion of Reclast -continue vitamin-D 2000 units daily -calcium rich foods to be incorporated in diet -advised to do weight-bearing exercise -patient continues to smoke, advised her about trying to quit, though she has tried Chantix and bupropion and nothing has worked for her. Plan I spent 30 minutes in reviewing the record, seeing the patient and documenting in the medical record. Orders: Orders Albumin Level Today E89.0 - Postprocedural hypothyroidism, M81.0 - Age-related osteoporosis without current pathological fracture Alkaline Phosphatase Bone Today E89.0 - Postprocedural hypothyroidism, M81.0 - Age-related osteoporosis without current pathological fracture Collagen Type I C-Telopeptide Today E89.0 - Postprocedural hypothyroidism, M81.0 - Age-related osteoporosis without current pathological fracture Collagen Crosslinks NTX Today E89.0 - Postprocedural hypothyroidism, M81.0 - Age-related osteoporosis without current pathological fracture Calcium, Random Urine Today E89.0 - Postprocedural hypothyroidism, M81.0 - Age- related osteoporosis without current pathological fracture Creatinine Urine Today E89.0 - Postprocedural hypothyroidism, M81.0 - Age- related osteoporosis without current pathological fracture Calcium, Ionized Today M81.0 - Age-related osteoporosis without current pathological fracture Calcium Today E89.0 - Postprocedural hypothyroidism, M81.0 - Age-related osteoporosis without current pathological fracture Phosphorus Today E89.0 - Postprocedural hypothyroidism, M81.0 - Age-related osteoporosis without current pathological fracture Parathyroid Hormone Intact Today E89.0 - Postprocedural hypothyroidism, M81.0 - Age-related osteoporosis without current pathological fracture Vitamin D 25-OH Total Today E89.0 - Postprocedural hypothyroidism, M81.0 - Age- related osteoporosis without current pathological fracture Thyroid Stimulating Hormone Today E89.0 - Postprocedural hypothyroidism, M81.0 - Age-related osteoporosis without current pathological fracture Free T4 (Free Thyroxine) Today E89.0 - Postprocedural hypothyroidism, M81.0 - Age-related osteoporosis without current pathological fracture Creatinine Today E89.0 - Postprocedural hypothyroidism, M81.0 - Age-related osteoporosis without current pathological fracture Patient Instructions: Do blood work and urine test, second urine of the day Continue vitamin D as it is Try to walk as much as possible Milk, yogurt, cheese: 2-3 servings daily Continue levothyroxine 175 mcg daily Coding Level of Care Code Est Pt Level 4 (42472) Diagnoses Postablative hypothyroidism E89.0 Hypothyroidism type: postablative Age-related osteoporosis without current pathological fracture M81.0 Osteoporosis type: age-related Presence of current pathological fracture: without current pathological fracture
[2024-08-23 11:19] VITALS: BP 124/62; PULSE 70; O2SAT 95; BMI 31.2
--- OUTSIDE RECORDS SUMMARY | 2024-08-23 13:34 | XMS_ITS | Clinical Summary ---
Author Organization [facility] Address [address] [place] [address] Care Team Providers Care Care Team Coordinator Scheduler Name Role Phone Sameera Herminia J Primary Care Provider [phone] Allergies Active Allergy Reactions Criticality Noted Date [...] age to complete this topic Care Teams Care Team Coordinator Scheduler Relationship Specialty Start Date End Date Herminia Brasher DO PCP - General Family Medicine 07/30/17
== END 2024-08-23 11:44 | disposition home or self-care (01) ==
LOC: HO.ENCR 11:17
PROVIDERS: PCP Nurse Practitioner Adult Health; Visit Provider Student in an Organized Health Care Education/Training Program
DX: E89.0 Postprocedural hypothyroidism (principal); M81.0 Age-related osteoporosis without current pathological fracture
CPT/HCPCS: 99214

== ENCOUNTER → 2024-08-23 11:17 | Outpatient (BNVA) | payer MEDICARE, OTHER, SELFPAY | PROVIDERS: PCP Nurse Practitioner Adult Health; Visit Provider Student in an Organized Health Care Education/Training Program | DX: E89.0 Postprocedural hypothyroidism (principal); M81.0 Age-related osteoporosis without current pathological fracture | CPT/HCPCS: 99212 ==

== ENCOUNTER 2024-08-24 10:27 | Outpatient (REF) | payer MEDICARE, OTHER, SELFPAY ==
--- OUTSIDE RECORDS SUMMARY | 2024-08-24 12:20 | XMS_ITS | Clinical Summary ---
Author Organization [facility] Address [address] [place] [address] Care Team Providers Care Planning Lead Name Role Phone Sameera Herminia J Primary Care Provider [phone] Allergies Active Allergy Reactions Criticality Noted Date [...] age to complete this topic Care Teams Planning Lead Relationship Specialty Start Date End Date Herminia Brasher DO PCP - General Family Medicine 07/30/17
[2024-08-24 14:00] LABS: Albumin Level 4.4 g/dL (3.5-5.0); Calcium 9.5 mg/dL (8.4-10.2); Estimated Glomerular Filt Rate > 60; Phosphorus 3.1 mg/dL (2.7-4.5)
[2024-08-24 14:05] LABS: Parathyroid Hormone Intact 109.9 pg/mL (8.7-77.1)
[2024-08-24 14:14] LABS: Free T4 (Free Thyroxine) 1.41 ng/dL (0.71-1.85); Thyroid Stimulating Hormone 0.33 uIU/mL (0.32-4.0); Vitamin D 25-OH Total 56.8 ng/mL (>30)
[2024-08-25 15:09] LABS: Calcium, Ionized 5.2 mg/dL (4.7-5.5)
[2024-08-26 17:58] LABS: Calcium, Random Urine 4.1 mg/dL
[2024-08-26 21:14] LABS: Alkaline Phosphatase Bone 16.6 mcg/L (5.6-29.0)
[2024-08-28 22:38] LABS: Collagen Type I C-Telopeptide 603 pg/mL (see note)
[2024-08-29 12:57] LABS: N-Telopeptide 32 (see note); NTXCreaRU 111 mg/dL (20-275)
== END 2024-08-24 10:28 | disposition home or self-care (01) ==
LOC: HO.10HDL 10:27
PROVIDERS: Visit Provider Student in an Organized Health Care Education/Training Program
DX: M81.0 Age-related osteoporosis without current pathological fracture (principal); E89.0 Postprocedural hypothyroidism
CPT/HCPCS: 36415; 82040; 82306; 82310; 82330; 82523; 82565; 82570; 83970; 84075; 84100; 84439; 84443

== ENCOUNTER 2024-10-04 14:46 | Outpatient (AMB) | payer MEDICARE, OTHER, SELFPAY ==
--- NOTE | 2024-10-04 14:47 | A.OFFVIS_ITS ---
Vital Signs 10/04/24 14:48 Height 5 ft 4.96 in Weight 185 lb 3.013 oz BMI 30.9 BP 130/64 Blood Pressure Location Lt brachial Position Sitting Pulse 74 Pulse Source Pulse Oximeter Pulse Oximetry (%) 98 Oxygen Delivery Method Room Air Intake Visit Reasons: hypothyroidism Intake Note: Patient present today for hypothyroidism office visit. Chute Worker Required: No Accompanied by: Self / Same As Patient Allergies bupropion [From ZYBAN] Allergy (Unknown, Verified 10/04/24 14:51) RASH nafcillin [NAFCILLIN] Allergy (Unknown, Verified 10/04/24 14:51) RASH Penicillins [PENICILLINS] Allergy (Unknown, Verified 10/04/24 14:51) RASH Sulfa (Sulfonamide Antibiotics) Allergy (Unknown, Verified 10/04/24 14:51) Unknown sulfamethoxazole [From BACTRIM] Allergy (Unknown, Verified 10/04/24 14:51) REDNESS, COLD EXTREMITIES trimethoprim [From BACTRIM] Allergy (Unknown, Verified 10/04/24 14:51) REDNESS, COLD EXTREMITIES ceftriaxone Adverse Reaction (Severe, Verified 10/04/24 14:51) Rash mannitol [From Reclast] Adverse Reaction (Unknown, Verified 10/04/24 14:51) Joint Pain water for injection,sterile [From Reclast] Adverse Reaction (Unknown, Verified 10/04/24 14:51) Joint Pain zoledronic acid [From Reclast] Adverse Reaction (Unknown, Verified 10/04/24 14:51) Joint Pain Zyban Allergy (Unknown, Uncoded 10/04/24 14:51) Unknown HPI Comments Details: 68 yo female today for fup visit, for osteoporosis and hypothyroidism Osteoporosis Treatment history: 07/2016 to July 2018: Forteo 12/2018-06/2018: Prolia 4 doses Subsequently there was a gap in care she was ahving a lot of dental work and then had a stroke 10/2021 Reclast administered Per the chart patient did not tolerate oral bisphosphonates well in the past? Fracture history: left elbow 30 years ago at least, nothing else Denies prior fractures, + GERD, Her mother and grand mother has history of osteoporosis, denies nephrolithiasis, no steroids used, she is still smoking, denies anti seizures medications, no Chronic PPI, no SSRI. Vitamin-D: 2000 units daily Calcium: no supplements, milk 1.5 larges glass a day, cheese occasionally, no yogurt Exercise: doing stairs 5 times a day, walking 20 mins daily Dental issues:no issues, up to date with cleaning For smoking has tried buprion and chantix, didnt work, still smoking 10-20 cigarettes per day Last bone density scan done in July 2022 shows T-score of -1.7 at the lumbar spine consistent with osteopenia with decrease of 13% at the spine since 2019, T-score of-1.5 at the femoral neck and-0.9 at the total femur, also consistent with osteopenia with not much significant change to noted by decrease of 0.7% since 2019. Interval history DEXA scan 07/19/2024 showed T-score of -0.2 at the lumbar spine with the increase of 17.7% compared to bone density in 2022, T-score of -0.9 at the left total hip with a decrease of-1.2% which is not statistically significant, and left femoral neck T-score of-1.2, with increase of 5.3% compared to prior exam. Overall bone density shows osteopenia of the hip and lumbar spine with increase in bone density that is significant at the spine and somewhat stable of the hip. Blood work from 08/24/2024 showed normal kidney function, normal calcium of 9.5, ionized calcium normal at 5.2, normal phosphorus of 3.1, bone specific alkaline phosphatase within normal range at 16.6, albumin of 4.4, NTX mildly elevated at 32, CTX also on the higher side at 603, that vitamin-D levels of 56.8, PTH elevated at 109.9. Smoking 10 to 15 cigarettes per day Walking 15 to 20 mins daily No falls or fractures Vitamin D 2000 units daily Calcium: no supplements, milk 1.5 larges glass a day, cheese occasionally, yogurt daily Dental issues:no issues, up to date with cleaning Postablative hypothyroidism Graves orbitopathy She has PMH of Graves' disease status post radioactive iodine ablation 1994 and Graves orbitopathy, post ablative hypothyroidism. She is currently on levothyroxine 175 mcg daily.. Taking it since last Mar 2023, when her TSH was elevated at 8. Was on 150 mcg before that for sometime. She has a good method of administration and she is 100% adherent. December 25 PCP TSH 0.56, free t4 2.0 November 24TSH 0.83, free t3 3.1 , free t4 two 1.5 Interval history Continues on levothyroxine 175 mcg daily Wt stable since February 2024 On off constipation and diarrhea. No heat or cold intolreance. No tremors. No palpitations. Has graves orbitopathy ,sees Dr. King says he advised against Tepezza due to longstanding disease and was told to go to [place] to [facility]. she doesnt want to go to [place]. Complaining of persistent dry eyes, worsening blurry vision. However she recently had visit with Dr. King's office and says everything was stable. Lab work from 08/24/2024 showed normal TSH of 0.33, normal free T4 Physical exam General: sitting comfortably in no acute distress HEENT: Exophthalmos and lid lag noted Neck: supple Cardiac: normal heart sounds Pulm: normal breath sounds B/L, no added breath sounds Abd: not distended, no tenderness Extremities: no edema, no signs of myxedema Laboratory Tests Laboratory Tests 02/24/24 02/24/24 08:30 12:02 Creatinine 0.84 Estimated GFR > 60 Calcium 9.9 Ionized Calcium 5.2 Phosphorus 3.0 Magnesium 2.1 Albumin 4.5 N-Telopeptide X-linked 23 25-OH Vitamin D Total 63.0 TSH 0.86 Free T4 1.44 PTH Intact 125.7 H Ur Random Calcium 5.6 Urine Creatinine 26.84 11/23/19 01/20/20 01/20/20 08:20 10:00 10:40 Hgb 13.3 Hct 40.9 Sodium 141 Potassium 4.6 Creatinine 0.84 Est GFR (Non-Af Amer) > 60 Fasting Glucose 85 Calcium AST 14 ALT 15 Alkaline Phosphatase 74 Albumin 4.5 N-Telopeptide X-linked 25 25-OH Vitamin D Total 26.3 Free T4 1.35 TSH 3rd Generation 2.13 PTH Intact 01/20/20 10:40 Hgb Hct Sodium Potassium Creatinine Est GFR (Non-Af Amer) Fasting Glucose Calcium 9.0 AST ALT Alkaline Phosphatase Albumin N-Telopeptide X-linked 25-OH Vitamin D Total Free T4 TSH 3rd Generation PTH Intact 174 H Laboratory Tests 06/30/18 11/18/18 06/11/19 08:20 Unknown 07:45 Creatinine Estimated GFR Calcium Albumin N-Telopeptide X-linked 43 70 22 25-OH Vitamin D Total 1,25 Dihydroxy Vit D 1,25 Dihydroxy Vit D2 1,25 Dihydroxy Vit D3 TSH Free T4 PTH Intact Calcium (PTH Intact) Ur Creatinine 24 Hour Ur Calcium 24 Hr Calcium/Creat 24 Hr 01/20/20 01/20/20 07/04/20 10:00 10:40 08:40 Creatinine Estimated GFR Calcium 8.8 Albumin N-Telopeptide X-linked 25 25-OH Vitamin D Total 26.3 18.3 1,25 Dihydroxy Vit D 59 1,25 Dihydroxy Vit D2 <8 1,25 Dihydroxy Vit D3 59 TSH Free T4 PTH Intact Calcium (PTH Intact) Ur Creatinine 24 Hour Ur Calcium 24 Hr Calcium/Creat 24 Hr 07/04/20 07/17/20 12/19/20 09:10 11:17 14:03 Creatinine Estimated GFR Calcium 9.1 9.3 Albumin 4.4 4.3 N-Telopeptide X-linked 62 25-OH Vitamin D Total 44.3 1,25 Dihydroxy Vit D 1,25 Dihydroxy Vit D2 1,25 Dihydroxy Vit D3 TSH Free T4 PTH Intact 104 H Calcium (PTH Intact) 9.3 Ur Creatinine 24 Hour Ur Calcium 24 Hr Calcium/Creat 24 Hr 08/22/21 08/24/21 10/02/21 15:11 09:30 11:27 Creatinine 0.81 Estimated GFR > 60 Calcium 10.4 H D Albumin 4.6 N-Telopeptide X-linked 25-OH Vitamin D Total 50.9 1,25 Dihydroxy Vit D 1,25 Dihydroxy Vit D2 1,25 Dihydroxy Vit D3 TSH Free T4 PTH Intact 51 Calcium (PTH Intact) 9.9 Ur Creatinine 24 Hour 1.0 Ur Calcium 24 Hr 248 Calcium/Creat 24 Hr 246 05/20/22 08/20/22 05/12/23 11:14 10:07 13:18 Creatinine Estimated GFR Calcium Albumin N-Telopeptide X-linked 24 25-OH Vitamin D Total 1,25 Dihydroxy Vit D 1,25 Dihydroxy Vit D2 1,25 Dihydroxy Vit D3 TSH 2.39 0.98 Free T4 1.01 1.21 PTH Intact Calcium (PTH Intact) Ur Creatinine 24 Hour Ur Calcium 24 Hr Calcium/Creat 24 Hr Laboratory Tests 02/24/24 08/24/24 08/24/24 12:02 09:40 10:34 Creatinine 0.84 0.85 Estimated GFR > 60 > 60 Calcium 9.5 Ionized Calcium 5.2 Phosphorus 3.1 Alk Phos Bone Specific 16.6 Albumin 4.4 N-Telopeptide X-linked 32 Collgn I C-Telopeptide 603 25-OH Vitamin D Total 63.0 56.8 TSH 0.86 0.33 Free T4 1.44 1.41 PTH Intact 109.9 H EXAMINATION: DXA BONE DENSITY AXIAL 07/19/24 HISTORY: Estrogen deficiency TECHNIQUE: [employer] Dual energy absorptiometry (DEXA) of the lumbar spine, total left hip, and femoral neck was performed. COMPARISON: Comparison is made with the prior examination dated 07/14/2022. FINDINGS: The bone mineral density of the lumbar spine is 1.152 with a T-score of -0.2, and a Z-score of 0.8. This represents a BMD change of 17.7% compared to the prior exam. This is statistically significant. The bone mineral density of the left total hip is 0.889 with a T-score of -0.9, and a Z-score of 0.0. This represents a BMD change of -1.2% compared to the prior exam. This is not statistically significant. The bone mineral density of the left femoral neck is 0.868 with a T-score of -1.2, and a Z-score of 0.0. This represents a BMD change of 5.3% compared to the prior exam. FRACTURE RISK: The FRAX index suggests a ten year probability of major osteoporotic fracture of 28.2%, and of hip fracture 7.5%. MM/XR DEXA axial skeleton IMPRESSION: Based on bone mineral density, and according to World Health Organization (WHO) criteria, the diagnosis is consistent with osteopenia. DEXA 07/24 BONE DENSITOMETRY CLINICAL INDICATION: Osteoporosis. COMPARISON: Previous BD dated 02/15/2020 and baseline BD dated 02/01/2016. TECHNIQUE: Using a [employer] DXA System (software version: 13.1) manufactured by [employer], dual-energy x-ray absorptiometry was performed of the lumbar spine and left hip. The images are of good technical quality. Summary results are attached. FINDINGS: AP SPINE L1-L4: Current: BMD 0.979 g/cm2, Z-score -0.5, T-score -1.7, osteopenia, 13.0% decrease from previous, 2.8% increase from baseline (<5% change is not significant). Prior: BMD 1.125 g/cm2. Baseline: BMD 0.952 g/cm2. LEFT FEMUR, NECK: Current: BMD 0.824 g/cm2, Z-score -0.2, T-score -1.5, osteopenia. Prior: BMD 0.822 g/cm2. Baseline: BMD 0.668 g/cm2. LEFT FEMUR, TOTAL: Current: BMD 0.900 g/cm2, Z-score 0.2, T-score -0.9, normal, 0.2% decrease from previous, 11.1% increase from baseline (<5% change is not significant). Prior: BMD 0.902 g/cm2. Baseline: BMD 0.810 g/cm2. IDENTIFIED RISK FACTORS: Menopause, height loss, family history (parent hip fracture), secondary osteoporosis, tobacco use (current smoker), osteoporosis. HISTORY OF FRACTURE: None listed. MEDICATIONS: Vitamin D, bisphosphonate. MM/XR DEXA axial skeleton IMPRESSION: 1. DIAGNOSIS: Osteopenia based on the lowest T-score value of -1.7 in the lumbar spine applying World Health Organization criteria. 2. 10-YEAR FRACTURE RISK PREDICTION, FRAX: Not performed in this patient on estrogen or bone building treatments. 3. Treatment Recommendations: NOF guidelines recommend consideration for treatment in postmenopausal women and men age 50 and older presenting with the following: -A hip or vertebral (clinical or morphometric) fracture. -T-score less than or equal to -2.5 at the femoral neck or spine after appropriate evaluation to exclude secondary causes. -Low bone mass at the hip or spine and a 10-year fracture probability by FRAX of greater than or equal to 3% for hip fracture or greater than or equal to 20% for major osteoporotic fracture based on the [place] adapted WHO algorithm. 4. Other Recommendations: All treatment decisions require clinical judgment and consideration of individual patient factors, including patient preferences, comorbidities, previous drug use, risk factors not captured in the FRAX model (e.g. frailty, falls, vitamin D deficiency, increased bone turnover, interval significant decline in bone density) and possible under or overestimation of fracture risk by FRAX. Additional medical evaluation for secondary cause of low bone mineral density may be appropriate. FUTURE SCAN RECOMMENDATION: People with diagnosed cases of osteoporosis or at high risk for fracture should have regular bone mineral density tests. For patients eligible for Medicare, routine testing is allowed once every 2 years. The testing frequency can be increased to one year for patients who have rapidly progressing disease, those who are receiving or discontinuing medical therapy to restore bone mass, or have additional risk factors. Seeing Dr. King who does not want to give Tepezza per patient . Currently on calcium and vitamin-D. No fracture since last visit Review of systems Constitutional: no fevers, chills or weight loss HEENT: no changes in vision Cardiac: No chest pain, discomfort or palpitations. Pulmonary: No SOB GI:has chronic GI issues : no burning micturition, dysuria or increase in urinary frequency Neurologic: No dizziness, no weakness in extremities MSK: no back pain or joint stiffness Physical exam General: sitting comfortably in bed in no acute distress HEENT: normocephalic/atraumatic, , exophthalmos noted, has lid lag Neck: supple, symmetrical, no thyromegaly , no dorsocervical or supraclavicular fat pads Cardiac: normal heart sounds Pulm: normal breath sounds B/L, no added breath sounds Abd: not distended, no tenderness Extremities: no edema, no signs of myxedema Neuro: AAO x3, Speech: normal, no facial droop, moving all 4 extremities Skin: no rash [facility] Medical History (Updated 08/22/21 @ 14:55 by David Servin MD) Vitamin D deficiency Overweight (BMI 25.0-29.9) Graves' orbitopathy Hypothyroidism Osteoporosis Surgical History History of surgery Hx of hernia repair History of colonoscopy Hx of cholecystectomy Hx of eye surgery Family History Mother No problems noted. Father No problems noted. Social History Alcohol intake: current Alcohol intake frequency: holidays/special occasions only Patient Tobacco Use Status: Current everyday Tobacco user Cigarette Packs Per Day: 0.5 Assessment & Plan Assessment & Plan (1) Hypothyroidism: Code(s): E03.9 - Hypothyroidism, unspecified Category: Medical Qualifiers: Hypothyroidism type: postablative Qualified Code(s): E89.0 - Postprocedural hypothyroidism Plan: Patient with history of Graves disease with Graves orbitopathy, who had radioactive iodine ablation in 1995, here today for follow-up of postablative hypothyroidism. She was previously on levothyroxine 150 mcg daily for a long period of time, however last year March 2023 was noted to have elevated TSH around 8 in required dose increment, now she is on 175 mcg daily. Most recent TSH normal from August 2024 She also has Graves orbitopathy, and was following with Dr. Dunn, continues to have symptoms of the dryness and blurry vision, she was referred to go to [place] for consideration of Tepezza. She did not want to go to [place], had recent follow up with the office of Dr. Dunn however says everything was stable.. Plan: -continue levothyroxine 175 mcg daily -TSH and free T4 to be repeated prior to follow up in 1 year (2) Osteoporosis: Code(s): M81.0 - Age-related osteoporosis without current pathological fracture Category: Medical Qualifiers: Osteoporosis type: age-related Presence of current pathological fracture: without current pathological fracture Qualified Code(s): M81.0 - Age- related osteoporosis without current pathological fracture Plan: Patient with history of osteoporosis, without any recent fractures, with last bone density scan from 07/19/2024 showed T-score of -0.2 at the lumbar spine with the increase of 17.7% compared to bone density in 2022, T-score of -0.9 at the left total hip with a decrease of-1.2% which is not statistically significant, and left femoral neck T-score of-1.2, with increase of 5.3% compared to prior exam. Overall bone density shows osteopenia of the hip and lumbar spine with increase in bone density that is significant at the spine and somewhat stable of the hip. Though when I reviewed the images she does seem to have a lot of arthritis in her back, this could be falsely elevating the a bone density at the spine.. She has previously been on Forteo, and then was transitioned to Prolia of which she received 4 doses, and then had treatment gap, lastly she received an infusion of Reclast in October 2021. She has been monitored with urine NTX, her last NTX level was from May 2022 which was nicely suppressed at 24. Previously it had been elevated in the 60s, suggesting that she was having a good response to Reclast. Most recently blood work from August 2024 shows NTX is at 32 which is still better than what it was prior to she got Reclast. CTX is mildly elevated at 602. She has not had any fractures. At this time patient expresses that she would like to hold off on repeat Reclast infusion and we agreed to follow up in 1 year with bone resorption markers. If she has a fracture she can reach out sooner. She is taking good amounts of vitamin-D and does have incorporation of calcium in her diet. I did reinforce it to her to take at least 3 servings of calcium rich foods daily. Continue vitamin-D 2000 units daily. She is walking 20 minutes , and we use the stairs as opposed to not exercising at all. She is also incorporating more calcium in her diet. Blood work from 08/24/2024 showed normal kidney function, normal calcium of 9.5, ionized calcium normal at 5.2, normal phosphorus of 3.1, bone specific alkaline phosphatase within normal range at 16.6, albumin of 4.4, NTX mildly elevated at 32, CTX also on the higher side at 603, that vitamin-D levels of 56.8, PTH elevated at 109.9. And this was also previously elevated in February 2024 when it was 125.7, her last Reclast was in 2021 so this is not likely an effect of Reclast. Her calcium levels have been normal. Her vitamin-D is within good range and kidney function is normal so it is not secondary hyperparathyroidism. I am suspecting this could have something to do with poor nutritional intake of calcium or she could possibly have normocalcemic hyperparathyroidism. At this time I will have her repeat labs in 6-8 weeks at [facility] as I have also seen some PTH elevations at our lab that could be due to some assay variability. she has ongoing risk factor of being an active smoker. Plan: -do urine NTX, calcium, PTH, ionized calcium, phosphorus, magnesium, vitamin-D , creatinine, CTX, bone specific alkaline phosphatase in 1 year prior to follow up -repeat PTH, calcium levels at [facility], papers given in 6-8 weeks -continue vitamin-D 2000 units daily -calcium rich foods to be incorporated in diet -advised to do weight-bearing exercise -patient continues to smoke, advised her about trying to quit, though she has tried Chantix and bupropion and nothing has worked for her. Plan I spent 30 minutes in reviewing the record, seeing the patient and documenting in the medical record. Orders: Orders Albumin Level 6 Weeks M81.0 - Age-related osteoporosis without current pathological fracture Parathyroid Hormone Intact 6 Weeks M81.0 - Age-related osteoporosis without current pathological fracture Calcium, Ionized 6 Weeks M81.0 - Age-related osteoporosis without current pathological fracture Calcium 1 Year E89.0 - Postprocedural hypothyroidism, M81.0 - Age-related osteoporosis without current pathological fracture Collagen Type I C-Telopeptide 1 Year E89.0 - Postprocedural hypothyroidism, M81.0 - Age-related osteoporosis without current pathological fracture Phosphorus 1 Year E89.0 - Postprocedural hypothyroidism, M81.0 - Age-related osteoporosis without current pathological fracture Vitamin D 25-OH Total 1 Year E89.0 - Postprocedural hypothyroidism, M81.0 - Age-related osteoporosis without current pathological fracture Creatinine 1 Year E89.0 - Postprocedural hypothyroidism, M81.0 - Age-related osteoporosis without current pathological fracture Thyroid Stimulating Hormone 1 Year E89.0 - Postprocedural hypothyroidism, M81.0 - Age-related osteoporosis without current pathological fracture Calcium 6 Weeks M81.0 - Age-related osteoporosis without current pathological fracture Albumin Level 1 Year E89.0 - Postprocedural hypothyroidism, M81.0 - Age-related osteoporosis without current pathological fracture Alkaline Phosphatase Bone 1 Year E89.0 - Postprocedural hypothyroidism, M81.0 - Age-related osteoporosis without current pathological fracture Collagen Crosslinks NTX 1 Year E89.0 - Postprocedural hypothyroidism, M81.0 - Age-related osteoporosis without current pathological fracture Calcium, Ionized 1 Year E89.0 - Postprocedural hypothyroidism, M81.0 - Age- related osteoporosis without current pathological fracture Free T4 (Free Thyroxine) 1 Year E89.0 - Postprocedural hypothyroidism, M81.0 - Age-related osteoporosis without current pathological fracture Medications: Refilled levothyroxine 175 mcg PO DAILY 90 tabs 4RF Patient Instructions: Continue levothyroxine 175 mcg daily Continue vitamin D 1000 to 2000 units daily Do blood work and urine test, second urine of the day in 1 year at least a week prior to appointment Try to walk as much as possible Milk, yogurt, cheese: 2-3 servings daily Also do a set of blood work at [facility] [address] [place] [address] in 6 weeks Papers given for this Coding Level of Care Code Est Pt Level 4 (23264) Diagnoses Postablative hypothyroidism E89.0 Hypothyroidism type: postablative Age-related osteoporosis without current pathological fracture M81.0 Osteoporosis type: age-related Presence of current pathological fracture: without current pathological fracture Time Spent (min) 30
[2024-10-04 14:48] VITALS: BP 130/64; PULSE 74; O2SAT 98; BMI 30.9
--- OUTSIDE RECORDS SUMMARY | 2024-10-04 16:30 | XMS_ITS | Clinical Summary ---
Author Organization [facility] Address [address] [place] [address] Care Team Providers Care Pickle Sorter Name Role Phone Sameera Herminia J Primary Care Provider [phone] Allergies Active Allergy Reactions Criticality Noted Date [...] Assessment 2020 Osteoporosis Screening (DEXA Scan) 2020 DTap / Tdap / Td (3 - Td or Tdap) 08/18/2024 08/18/2014, 08/06/2014 Influenza Vaccine (Season Ended) 2025 02/10/2019 RSV Adult > 60+ Yrs or (1 - 1-dose 75+ series) 2030 Hepatitis B Vaccines Aged Out No long er eligible based on patient's age to complete this topic RSV Ped < 20 months Aged Out No longe r eligible based on patient's age to complete this topic Care Teams Pickle Sorter Relationship Specialty Start Date End Date Herminia Brasher DO PCP - General Family Medicine 07/30/17
== END 2024-10-04 15:13 | disposition home or self-care (01) ==
LOC: HO.ENCR 14:47
PROVIDERS: PCP Nurse Practitioner Adult Health; Visit Provider Student in an Organized Health Care Education/Training Program
DX: E89.0 Postprocedural hypothyroidism (principal); M81.0 Age-related osteoporosis without current pathological fracture
CPT/HCPCS: 99214

== ENCOUNTER → 2024-10-04 14:46 | Outpatient (BNVA) | payer MEDICARE, OTHER, SELFPAY | PROVIDERS: PCP Nurse Practitioner Adult Health; Visit Provider Student in an Organized Health Care Education/Training Program | DX: M81.0 Age-related osteoporosis without current pathological fracture (principal); E89.0 Postprocedural hypothyroidism | CPT/HCPCS: 99212 ==